=== PATIENT | female | born 1940 | race Caucasian/White ===

== ENCOUNTER 2017-03-01 10:09 | Emergency (ER) | payer MEDICARE, OTHER, SELFPAY ==
[2017-03-01 10:10] VITALS: BP 93/66; PULSE 87; PULSE 89; RESP 17; RESP 20; TEMP 36.5; O2SAT 92; O2SAT 97; BMI 18.5
[2017-03-01] MEDS: 0.9% Normal Saline 1,000 ML 1000 ML IV (10:30)
[2017-03-01 10:39] LABS: Absolute Lymphocyte Count 1.38 X10^3/ul (0.83-4.51); Absolute Neutrophil Count 13.1 X10^3/uL (2.0-7.7); Basophil# 0.02 X10^3/uL; Basophil% 0.1 % (0-1); Eosinophil# 0.07 X10^3/uL; Eosinophils% 0.4 % (0-5); Hematocrit 31.4 % (37-47); Hemoglobin 9.7 g/dl (12.0-15.0); Lymphocyte # 1.38 X10^3/ul (4.0); Lymphocyte % 8.7 % (19-41); Mean Corp Hgb Conc 30.9 g/gl (32-36); Mean Corpuscular Hgb 25.7 pg (27.0-32.0); Mean Corpuscular Volume 83.1 fL (81-99); Mean Platelet Vol. 9.3 fl (6.2-12.0); Monocyte# 1.15 X10^3/uL; Monocyte% 7.3 % (0-10); Neutrophil # 13.13 X10^3/uL (2.7-7.7); Neutrophil % 83.2 % (47-70); Platelet Count 414 K/mm3 (150-450); RBC Distribution Width CV 16.5 % (11.6-14.6); RBC Distribution Width SD 50.8 fl (35.1-43.9); Red Blood Count 3.78 M/mm3 (4.2-5.4); White Blood Count 15.8 K/mm3 (4.4-11.0)
[2017-03-01 10:44] LABS: Anion Gap 12 (5-15); BUN 15 mg/dL (7-18); BUN/Creat Ratio 8.4 RATIO (10-20); Calcium,Total 9.3 mg/dL (8.5-10.1); Chloride 104 mmol/L (98-107); Creatinine, Serum 1.78 mg/dL (0.55-1.02); EST Glomerular Filtration Rate 29 mL/min (>60); Est Glom Filt Rate - Afr Amer 36 mL/min (>60); Glucose 94 mg/dL (70-110); Potassium 3.1 mmol/L (3.5-5.1); Sodium Level 139 mmol/L (136-145)
[2017-03-01 10:55] LABS: Lactic Acid 1.6 mmol/L (0.4-2.0)
[2017-03-01 10:56] LABS: POSITIVE COUNT NO; POSITIVE DIFFERENTIAL NO; POSITIVE MORPHOLOGY NO
--- NOTE | 2017-03-01 12:07 | ED.VISSUMM ---
- ER Visit Summary Date of Service: 03/01/17 Chief Complaint: Diarrhea History of Present Illness: The patient is a [address] Hutton. She reports that she has had diarrhea off and on for months. The most recent episode began again yesterday at 2 PM. States she is going approximately once an hour. No blood in her stools or black tarry stools. She denies any abdominal pain. She reports that at times she gets nauseated when she eats. She reports that she vomited once this morning. No blood in her emesis. States this is similar to when she had C. difficile approximately 2 years ago. However, she had a negative C. difficile at [facility] earlier this month and a negative C. difficile in the office approximately 1 week ago. Patient denies sick contacts. Has not been camping out of the country. No possible bad food exposure. Does not drink well water. No recent antibiotic use. Physical Examination: Vitals: Stable. Afebrile. General: Well-nourished and well-developed. Head: Normocephalic atraumatic. Neck: Supple, no lymphadenopathy. No JVD. Nontender. Cardiovascular: Regular rate and rhythm. 2 out of 6 systolic murmur. Respiratory: No respiratory distress. Clear to auscultation bilaterally. Abdominal: Soft, nontender, minimal tenderness to palpation that is diffuse, normal bowel sounds. No guarding, rebound, or peritoneal signs. Back: Nontender. Extremities: Nontender, no edema. Skin: Normal color, no rash. Neurologic: Alert and oriented ?3. Cranial nerves II through XII are intact. Normal strength and sensation. Psych: Normal affect. Test Results: CBC is marked for a white count of 15.8, H&H of 9.7 31.4, segmented neutrophils 83, leukocytes of 9. Her white count has ranged between 14.3 and 18.2 since January 08, 2017. Chem-7 is marked potassium 3.1 creatinine 1.78. Creatinine has ranged between 1.32 and 2.53 since January of last year. Lactic acid is normal. Emergency Department Course and Treatment: Patient has been unable to give a stool sample on the emergency department. She has had no diarrhea while here. She was given a liter bolus of normal saline. Had a prolonged discussion with the patient and her family. She has never had a colonoscopy, endoscopy, or seen a miller head. Treatment Plan: Patient is asking for something for the diarrhea at home. She is given Lomotil to use sparingly. Instructed to follow-up with her primary care physician in 1-2 days if not improving. She does understand that she needs to have a positive C. difficile before treatment for this is recommended. I have also suggested that she follow-up with Dr. Goodwin, of gastroenterology, as soon as possible. Return to the emergency department for any worsening symptoms. Disposition: To home in improved and stable condition. Impression: 1. Diarrhea. 2. Leukocytosis, chronic. 3. Chronic renal insufficiency. This note was generated with [employer] dictation software. It may contain incorrect words, spelling, and punctuation that were not noted in review of the chart prior to signing ED Disposition - Plan for ED Patient: Disposition: Home or Assisted Living Chief Complaint: Diarrhea Instructions: ED Vomiting Diarrhea Nonspecific Ad Prescriptions: Diphenoxylate/Atrop [Lomotil] 1 tablet PO BID PRN PRN #6 tablet PRN Reason: Diarrhea Referrals: Sherry Hutton MD [Primary Care Provider] - 1-2 Days if not improving Asa Goodwin MD [STAFF PHYSICIAN] - As soon as possible
--- NOTE | 2017-03-01 12:10 | ED.DCSUM_ITS ---
- ER Visit Summary Date of Service: 03/01/17 Chief Complaint: Diarrhea History of Present Illness: The patient is a [address] Hutton. She reports that she has had diarrhea off and on for months. The most recent episode began again yesterday at 2 PM. States she is going approximately once an hour. No blood in her stools or black tarry stools. She denies any abdominal pain. She reports that at times she gets nauseated when she eats. She reports that she vomited once this morning. No blood in her emesis. States this is similar to when she had C. difficile approximately 2 years ago. However, she had a negative C. difficile at [facility] earlier this month and a negative C. difficile in the office approximately 1 week ago. Patient denies sick contacts. Has not been camping out of the country. No possible bad food exposure. Does not drink well water. No recent antibiotic use. Physical Examination: Vitals: Stable. Afebrile. General: Well-nourished and well-developed. Head: Normocephalic atraumatic. Neck: Supple, no lymphadenopathy. No JVD. Nontender. Cardiovascular: Regular rate and rhythm. 2 out of 6 systolic murmur. Respiratory: No respiratory distress. Clear to auscultation bilaterally. Abdominal: Soft, nontender, minimal tenderness to palpation that is diffuse, normal bowel sounds. No guarding, rebound, or peritoneal signs. Back: Nontender. Extremities: Nontender, no edema. Skin: Normal color, no rash. Neurologic: Alert and oriented ?3. Cranial nerves II through XII are intact. Normal strength and sensation. Psych: Normal affect. Test Results: CBC is marked for a white count of 15.8, H&H of 9.7 31.4, segmented neutrophils 83, leukocytes of 9. Her white count has ranged between 14.3 and 18.2 since January 08, 2017. Chem-7 is marked potassium 3.1 creatinine 1.78. Creatinine has ranged between 1.32 and 2.53 since January of last year. Lactic acid is normal. Emergency Department Course and Treatment: Patient has been unable to give a stool sample on the emergency department. She has had no diarrhea while here. She was given a liter bolus of normal saline. Had a prolonged discussion with the patient and her family. She has never had a colonoscopy, endoscopy, or seen a nutrient management specialist. Treatment Plan: Patient is asking for something for the diarrhea at home. She is given Lomotil to use sparingly. Instructed to follow-up with her primary care physician in 1-2 days if not improving. She does understand that she needs to have a positive C. difficile before treatment for this is recommended. I have also suggested that she follow-up with Dr. Goodwin, of gastroenterology , as soon as possible. Return to the emergency department for any worsening symptoms. Disposition: To home in improved and stable condition. Impression: 1. Diarrhea. 2. Leukocytosis, chronic. 3. Chronic renal insufficiency. This note was generated with [email or web address] dictation software. It may contain incorrect words, spelling, and punctuation that were not noted in review of the chart prior to signing ED Disposition - Plan for ED Patient: Disposition: Home or Assisted Living Chief Complaint: Diarrhea Instructions: ED Vomiting Diarrhea Nonspecific Ad Prescriptions: Diphenoxylate/Atrop [Lomotil] 1 tablet PO BID PRN PRN #6 tablet PRN Reason: Diarrhea Referrals: Sherry Hutton MD [Primary Care Provider] - 1-2 Days if not improving Asa Goodwin MD [STAFF PHYSICIAN] - As soon as possible
[2017-03-01 13:06] VITALS: BP 116/53; PULSE 85; RESP 20; O2SAT 97
== END 2017-03-01 14:00 | disposition home or self-care (01) ==
LOC: ED 11:16
PROVIDERS: Emergency Provider Emergency Medicine; Family Provider Internal Medicine; PCP Internal Medicine
DX: R19.7 Diarrhea, unspecified (principal); D72.829 Elevated white blood cell count, unspecified; I12.9 Hypertensive chronic kidney disease with stage 1 through stage 4 chronic kidney disease, or unspecified chronic kidney disease; N18.9 Chronic kidney disease, unspecified; E78.00 Pure hypercholesterolemia, unspecified; J44.9 Chronic obstructive pulmonary disease, unspecified; F17.210 Nicotine dependence, cigarettes, uncomplicated; R01.1 Cardiac murmur, unspecified
CPT/HCPCS: 80048; 83605; 85025; 96360; 99285; J7030; A4216

== ENCOUNTER 2017-03-13 15:54 | Inpatient (IN) | payer MEDICARE, OTHER, SELFPAY ==
[2017-03-13] VITALS (12 sets, daily range): BP systolic 109–145; BP diastolic 54–66; PULSE 107–125; RESP 16–28; TEMP 36.6–37.8; O2SAT 93–100; BMI 19.3; BMI 17.0
--- NOTE | 2017-03-13 16:28 | CT_ITS ---
STUDY: CT ABDOMEN AND PELVIS WITH CONTRAST REASON FOR EXAM: Female, 76 years old. Abdominal pain. RADIATION DOSAGE (If Supplied By Facility): CTDIvol = ( 9.75 ) mGy, DLP = ( 286.88 ) mGycm TECHNIQUE: Transaxial images were obtained from the dome of the diaphragm to the symphysis pubis without oral contrast. 100 ml of Isovue 300 contrast was administered. Sagittal and coronal images were reconstructed. Individualized dose optimization techniques were used for this CT. COMPARISON: None. FINDINGS: The visualized lung bases are unremarkable. There are peripheral calcifications and mural thrombus within the visualized ascending aorta which measures up to 3.4 cm in diameter. Within the left hepatic lobe there is a well-circumscribed 1.2 cm low-attenuation focus that likely reflects an underlying hemangioma or cyst. There is a similar appearing 7 mm focus within the dome of the liver. Normal gallbladder and extrahepatic biliary system. Normal spleen. Normal pancreas. There is a 2.3 x 2.1 x 2.2 cm slightly heterogenous left adrenal nodule. There is mild nodularity in the right adrenal gland noted as well. There are bilateral well-circumscribed low-attenuation foci arising from the kidneys most consistent with underlying cysts. There is a 1.7 x 1.9 x 1.9 cm slightly high attenuation rounded focus arising from the right kidney with a Hounsfield units of 64. There is an additional 9 mm slightly high attenuation focus arising from the right kidney with a Hounsfield units of 63. There is a minimally complex left renal cyst. Normal visualized stomach. Normal small intestine. There are diverticula scattered throughout the descending and sigmoid colon. There is circumferential wall thickening of the descending colon extending into the sigmoid descending colon junction associated with pericolonic stranding. There is mild circumferential wall thickening throughout the colon which may be partially secondary to its incomplete distended state. There is non-visualization of the appendix. There is diffuse atherosclerotic calcification of the abdominal aorta, without a demonstrated aneurysm. Normal inferior vena cava. Normal retroperitoneum. There is air within the urinary bladder associated with bladder wall thickening. There appears to be prolapse of the uterus. Normal abdominal wall. There are diffuse degenerative changes of the visualized lumbar spine. CT/Abdomen/Pelvis W IV Cont ONLY IMPRESSION: Acute diverticulitis involving the descending and sigmoid descending colonic junction. Air within the urinary bladder that may be secondary to recent instrumentation however an underlying infectious process cannot be entirely excluded. Indeterminate left adrenal and right renal cystic foci, cannot exclude underlying neoplastic processes recommend a MRI for further characterization. Possible uterine prolapse. Atherosclerosis. Mild circumferential wall thickening of the colon that may be secondary to its incompletely distended state and/or a sequela of prior colitis. Electronically Signed: Latricia Childs MD at 18:43 EST Tel , Service support ,
--- NOTE | 2017-03-13 16:28 | EKG12_ITS ---
Test Reason : Blood Pressure : / mmHG Vent. Rate : 112 BPM Atrial Rate : 112 BPM P-R Int : 124 ms QRS Dur : 066 ms QT Int : 348 ms P-R-T Axes : 067 013 064 degrees QTc Int : 475 ms Sinus tachycardia Nonspecific ST and T wave abnormality Abnormal ECG Confirmed by NAOMY TRIVEDI, KAMALJIT ([id number]), social media editor JAMIE ESTRADA ([id number]) on 03/16/2017 1:54:18 PM Referred By: KATHY Confirmed By:KAMALJIT MORALEZ MD
--- NOTE | 2017-03-13 16:30 | RAD_ITS ---
STUDY: X-RAY CHEST REASON FOR EXAM: Female, 76 years old. Tachypnea TECHNIQUE: Frontal chest COMPARISON: August 12, 2015 FINDINGS: There is elevation of the left hemidiaphragm. There are stable prominent coarse interstitial markings. There is a stable rounded radiolucency within the right upper lung which may reflect underlying bulla. Normal size heart. Normal mediastinum and dominick. Normal visualized pulmonary arteries. There is atherosclerotic calcification of the aortic arch with tortuosity. Normal visualized thoracic spine. There is a stable left posterior rib deformity suggestive of a healed fracture. There is no demonstrated abnormality of the visualized soft tissue structures of the upper abdomen. RAD/Chest 1 View (Portable) IMPRESSION: Stable examination demonstrating no acute cardiopulmonary process. Electronically Signed: Latricia Childs MD at 17:08 EST Tel , Service support ,
--- NOTE | 2017-03-13 16:32 | ED.DCSUM_ITS ---
- ER Visit Summary Date of Service: 03/13/17 Chief Complaint: Diarrhea and feeling foggy History of Present Illness: The patient is a 76 F with recent recurrent diarrhea presents for return of diarrhea today and fogginess. Family states the patient has been having some difficulty with ADLs and doing some actions that are not appropriate, such as not letting go of a door handle or letting go of her walker when appropriate and also trying to sit on the coffee table instead of in the couch. She started having watery diarrhea again today. They gave her Imodium. She vomited 30 minutes later. No fever, chest pain, acute shortness of breath but patient has chronic dyspnea secondary to smoking. No abdominal pain, no urinary symptoms. History of borderline diabetes, hypertension, COPD, history of C. difficile, recent C2 fracture and currently in a c-collar Physical Examination: Vital signs: afebrile, hemodynamically stable, no hypoxia on room air General: Frail-appearing, well developed, in no distress c-collar in place Skin: warm, dry, no rash, no pallor HEENT: normocephalic and atraumatic; PERRL, EOMI, dry mucous membranes Cardiovascular: Tachycardic rate and rhythm without murmurs, no peripheral edema , 2+ pulses all distal extremities Respiratory: No increased work of breathing, lungs are clear to auscultation bilaterally, no rales, rhonchi or wheezing Abdominal: Abdomen is soft, nontender with normoactive bowel sounds, no guarding or rebound, no masses MSK: Moves all extremities, no deformities, normal strength Neuro: Awake and alert, oriented ?4. No facial droop, sensation and motor function intact and symmetric Test Results: Abnormal Lab Results 03/13/17 03/13/17 03/13/17 16:00 16:00 16:00 WBC 20.0 H RBC 3.71 L Hgb 9.5 L Hct 31.0 L MCV 83.6 MCH 25.6 L MCHC 30.6 L RDW 17.1 H RDW Differential 50.3 H Plt Count 478 H MPV 10.6 Immature Gran % (Auto) 0.500 Neut % (Auto) 89.4 H Lymph % (Auto) 4.9 L Franklin % (Auto) 4.9 Eos % (Auto) 0.1 Baso % (Auto) 0.2 Absolute Neuts (auto) 17.9 H Absolute Lymphs (auto) 0.97 Total Counted Not Reportable PT 13.7 INR 1.1 APTT 30.9 Sodium 140 Potassium 2.9 L Chloride 105 Carbon Dioxide 23.0 Anion Gap 12 BUN 13 Creatinine 1.29 H Estim Creat Clear Calc 28.48 Est GFR (MDRD) Af Amer 52 L Est GFR (MDRD) Non-Af 43 L BUN/Creatinine Ratio 10.1 Glucose 106 Lactic Acid Calcium 8.2 L Total Bilirubin 0.40 AST 14 L ALT 12 L Alkaline Phosphatase 137 H Troponin I 0.04 Total Protein 6.3 L Albumin 2.3 L Globulin 4.0 Albumin/Globulin Ratio 0.6 L Lipase 95 Urine Color Urine Clarity Urine pH Ur Specific Alpha Urine Protein Urine Glucose (UA) Urine Ketones Urine Occult Blood Urine Nitrite Urine Bilirubin Urine Urobilinogen Ur Leukocyte Esterase Urine RBC Urine WBC Ur Squamous Epith Cells Urine Bacteria Urine Mucus POC Glucose 03/13/17 03/13/17 03/13/17 16:40 16:45 17:20 WBC RBC Hgb Hct MCV MCH MCHC RDW RDW Differential Plt Count MPV Immature Gran % (Auto) Neut % (Auto) Lymph % (Auto) Franklin % (Auto) Eos % (Auto) Baso % (Auto) Absolute Neuts (auto) Absolute Lymphs (auto) Total Counted PT INR APTT Sodium Potassium Chloride Carbon Dioxide Anion Gap BUN Creatinine Estim Creat Clear Calc Est GFR (MDRD) Af Amer Est GFR (MDRD) Non-Af BUN/Creatinine Ratio Glucose Lactic Acid 2.2 H Calcium Total Bilirubin AST ALT Alkaline Phosphatase Troponin I Total Protein Albumin Globulin Albumin/Globulin Ratio Lipase Urine Color Yellow Urine Clarity Cloudy Urine pH 6.0 Ur Specific Alpha 1.020 Urine Protein 100 H Urine Glucose (UA) Normal Urine Ketones 5 H Urine Occult Blood 25 H Urine Nitrite Negative Urine Bilirubin 1 H Urine Urobilinogen 1 H Ur Leukocyte Esterase 500 H Urine RBC 0 SEEN Urine WBC >100 SEEN Ur Squamous Epith Cells 0 SEEN Urine Bacteria 4+ Urine Mucus 0 SEEN POC Glucose 104 Emergency Department Course and Treatment: Patient's presentation is concerning for possible intra-abdominal allergy, with C. difficile high in the differential. Infectious workup was performed. Patient had leukocytosis of 20. Lactate elevated at 2.2. Because she meets sepsis criteria with concern for infectious etiology, she was started empirically on Zosyn for intra- abdominal coverage. Urine came back positive for infection. Potassium low at 2.9. Creatinine was at baseline. Troponin 0 0.04. EKG showed a sinus tachycardia without any ischemic changes. Chest x-ray showed no pneumonia. CT of the abdomen and pelvis showed diverticulitis and colitis. C. difficile is pending as patient had episode of diarrhea in the emergency department. She was given initially oral potassium but could not swallow the pills and thus it was switched to IV potassium. Received IV fluids. She was discussed with Dr. Monae admitted for further management and workup of severe sepsis. Treatment Plan: [] Disposition: Admission Impression: #1. Severe sepsis #2. UTI #3. Hypokalemia #4. Diverticulitis #5. Colitis #6. History of C. difficile This note was generated with [employer] dictation software. It may contain incorrect words, spelling, and punctuation that were not noted in review of the chart prior to signing ED Disposition - Plan for ED Patient: Disposition: Acute Care [facility] Chief Complaint: Weakness
[2017-03-13 16:46] LABS: Bedside Glucose 104 mg/dL (70-110)
[2017-03-13] MEDS: 0.9% Normal Saline 1,000 ML 1000 ML IV (16:46)
[2017-03-13 17:04] LABS: Absolute Lymphocyte Count 0.97 X10^3/ul (0.83-4.51); Absolute Neutrophil Count 17.9 X10^3/uL (2.0-7.7); Basophil# 0.03 X10^3/uL; Basophil% 0.2 % (0-1); Eosinophil# 0.01 X10^3/uL; Eosinophils% 0.1 % (0-5); Hemoglobin 9.5 g/dl (12.0-15.0); International Normalized Ratio 1.1; Lymphocyte # 0.97 X10^3/ul (4.0); Lymphocyte % 4.9 % (19-41); Mean Corp Hgb Conc 30.6 g/gl (32-36); Mean Corpuscular Hgb 25.6 pg (27.0-32.0); Mean Corpuscular Volume 83.6 fL (81-99); Mean Platelet Vol. 10.6 fl (6.2-12.0); Monocyte# 0.97 X10^3/uL; Monocyte% 4.9 % (0-10); Neutrophil % 89.4 % (47-70); Platelet Count 478 K/mm3 (150-450); Prothrombin Time (Protime)PT. 13.7 SECONDS (11.7-14.9); RBC Distribution Width CV 17.1 % (11.6-14.6); RBC Distribution Width SD 50.3 fl (35.1-43.9); Red Blood Count 3.71 M/mm3 (4.2-5.4)
[2017-03-13 17:05] LABS: Partial Thromboplast Time 30.9 Seconds (24.1-36.2)
[2017-03-13 17:10] LABS: POSITIVE COUNT NO; POSITIVE DIFFERENTIAL NO; POSITIVE MORPHOLOGY NO
[2017-03-13 17:17] LABS: ALB/GLOB Ratio 0.6 RATIO (0.9-2.4); AST(SGOT) 14 U/L (15-37); Alanine Aminotransfer ALT/SGPT 12 U/L (13-56); Albumin, Serum 2.3 g/dL (3.2-5.0); Alkaline Phosphatase 137 U/L (45-117); Anion Gap 12 (5-15); BUN 13 mg/dL (7-18); BUN/Creat Ratio 10.1 RATIO (10-20); Calcium,Total 8.2 mg/dL (8.5-10.1); Chloride 105 mmol/L (98-107); Creatinine, Serum 1.29 mg/dL (0.55-1.02); EST Glomerular Filtration Rate 43 mL/min (>60); Est Glom Filt Rate - Afr Amer 52 mL/min (>60); Estimated Creatinine Clearance 28.48 ml/min; Glucose 106 mg/dL (74-106); Lipase 95 U/L (73-393); Potassium 2.9 mmol/L (3.5-5.1); Protein, Total 6.3 g/dL (6.4-8.2); Sodium Level 140 mmol/L (136-145)
[2017-03-13 17:28] LABS: Lactic Acid 2.2 mmol/L (0.4-2.0)
--- NOTE | 2017-03-13 17:29 | ED.RN ---
LACTIC ACID 2.[address] LAB[address] DR CHAVEZ AWARE
[2017-03-13 17:33] LABS: Mucous, Urine 0 SEEN /hpf (<or=2+); Red Blood Cells-Urine 0 SEEN /hpf (0-5); Squamous Epithelial Cells - UA 0 SEEN /hpf (5-10)
[2017-03-13 17:36] LABS: Color, Urine Yellow (Yellow); Glucose, Dipstick Normal (Normal); Ketone-Dipstick 5 mg/dl (Negative); Leukocyte Esterase-Dipstick 500 /ul (Negative); Nitrite-Dipstick Negative (Negative); Occult Blood-Urine 25 /ul (Negative); Protein-Dipstick 100 mg/dl (Negative); Urine Clarity Cloudy (Clear); Urine Urobilinogen 1 mg/dl (Normal)
[2017-03-13 17:50] LABS: Urine Bilirubin Dipstick 1 mg/dL (Negative)
[2017-03-13 17:52] LABS: Bacteria 4+ /hpf (None Seen)
[2017-03-13 17:54] LABS: White Blood Cells >100 SEEN /hpf (0-5)
--- NOTE | 2017-03-13 18:33 | ED.RN ---
POC DISCUSSED WITH DR. CHAVEZ. AWARE OF MOST RECENT SET OF VITAL SIGNS. CONT TO MONITOR.
--- NOTE | 2017-03-13 19:41 | PCM.HP.STD ---
Problem List (1) Abdominal cramping Status: Acute (2) Diarrhea Status: Acute Qualifiers: Diarrhea type: presumed infectious Qualified Code(s): R19.7 - Diarrhea, unspecified History of Present Illness Date of Admission: 03/13/17 Chief Complaint: abdominal cramping, diarrhea The patient is a 76 year old F who was seen in the emergency room at [facility] with complaints of diarrhea, abdominal cramping, and lethargy which started today. patient had also been acting confused at times today. workup in the ER included labs which were remarkable for an elevated WBC of 20,000, Hb was 9.5, K was 2.9, UA showed over 100 WBC's and 4+ bacteria. Creatinine was 1.29 and Lactic acid was 2.2. CT of abdomen and pelvis was obtained which showed diverticulitis of sigmoid and descending colon and air within the bladder. On exam, patient was appropriate but lethargic, heart rate was regular and tachycardic, abdomen was soft, there was moderate abdominal tenderness to palpation over the left lower quadrant, and lungs were clear. Patient was aditted for acute severe sepsis from diverticulitis, possible C.difficle infection, acute cystitis, and hypokalemia. She will be admitted to PCU. 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 pt Chronic respiratory failure with hypoxia (Chronic) HTN (hypertension) (Chronic) Allergies No Known Allergies Allergy (Verified 03/01/17 10:10) Home Medications: Ambulatory Orders Medication Instructions Recorded Albuterol Sulfate [Proair 2 puff IH PRN PRN 04/30/15 Respiclick] Budesonide/Formoterol 160/4.5 2 puff INHALATION BID 04/30/15 [Symbicort 160/4.5 Mcg Inhaler (SP)] Cilostazol [Pletal] 100 mg PO DAILY 04/30/15 Losartan Potassium [Cozaar] 100 mg PO DAILY 04/30/15 Metoprolol Tartrate [Lopressor 50 mg PO BID 04/30/15 (beta jose)] Tiotropium [place] [Spiriva 18 MCG] 1 puff INHALATION DAILY 04/30/15 Meclizine HCl [Antivert] 12.5 mg PO TID PRN PRN 08/12/15 Saccharomyces Boulardii [Digestive 200 mg PO DAILY 08/12/15 Probiotic] Simvastatin [Zocor] 20 mg PO QHS 08/12/15 Ondansetron [Zofran Odt] 4 mg PO Q8H PRN PRN #10 tab 01/20/17 Diphenoxylate/Atrop [Lomotil] 1 tablet PO BID PRN PRN #6 tablet 03/01/17 Surgical History: - - Vascular surgery in her lower back Psychiatric History: No pertinent psych hx TRAINING PROGRAM MANAGER History: No pertinent TRAINING PROGRAM MANAGER history Lives: With Family Smoking Status: Current every day smoker Tobacco Use: Cigarettes Alcohol: None Drugs: None - *Family History Maternal History Items: No pertinent history Paternal History Items: Cancer Review of Systems Constitutional: Reports: Anorexia, Malaise, Weakness, Fatigue. Denies: Chills, Fever, Night Sweats Eyes: Denies: Blurred vision, Cataracts, Conjunctivae Inflammation, Drainage, Eyelid Inflammation, Pain HEENT: Denies: Difficulty Swallowing, Dysphasia, Ear Pain, Eye Pain, Head Aches, Hearing Changes, Nasal bleeding, Nasal Congestion, Post Nasal Drip Cardiovascular: Denies: Chest Pain, Claudication, Chest Pressure, Chest Tightness, Heaviness, Light Headedness, Orthopnea, Syncope Respiratory: Denies: Cough, Hemoptysis, Pleuritic Pain, Shortness of Breath Gastrointestinal: Reports: Abdominal Pain, Diarrhea. Denies: Constipation, Dyspepsia, Hematemesis, Hematochezia, Nausea, Melena Genitourinary: Denies: Dysuria, Frequency, Hematuria, Incontinence, Nocturia, Retention Gynecological: Denies: Breast symptoms Musculoskeletal: Denies: Back Pain, Foot Pain, Hand Pain, Joint stiffness, Joint swelling, Joint Tenderness, Leg Pain Skin: Denies: Dryness, Jaundice, Pruritis, Rash Neurological: Reports: Balance problems. Denies: Blurred vision, Double vision, Change in Speech, Slurred speech, Difficulty swallowing, Focal weakness, Headaches, Incoordination, Numbness Psychiatric: Denies: Anxiety, Homicidal Ideations Endocrine: Denies: Change in Body Habitus, Heat/ Cold Intolerance, Polyuria VTE Information - Inpt Only VTE Present on Admission: No VTE Mechan Device Prophylaxis: None VTE Pharm Prophylaxis ordered?: Yes Patient Problems: Active and Suspected Problems Abdominal cramping (Acute) Diarrhea (Acute) - Physical Exam General: Alert, Oriented x3, Cooperative, No apparent distress, Well developed, Well nourished, Lethargic HEENT: Atraumatic, PERRLA, EOMI, Normocephalic Oral: Moist Mucosa Neck: Supple, No JVD, Negative Carotid Bruits, No Nuchal Rigidity, Trachea Midline, Thyroid Normal Size and Texture Lungs: Clear to auscultation, Normal air movement, No rhonchi, No wheeze, No rales Cardiovascular: Regular Rhythm, Normal S1, Normal S2, No murmurs, No Ectopic Activity, PMI Normal, No rub noted, Tachycardic Abdomen: Bowel Sounds Present, Soft, Non Tender, Non-Distended, Tender - left lower abdominal tenderness to palpation, No hernias noted Extremities: No clubbing, No cyanosis, No edema, Capillary Refill Less than 3 Seconds Skin: No rashes, No breakdown Neurological: Cranial nerves II-XII grossly intact, Neuro grossly intact, Sensory exam intact to light touch and pain, Coordination normal Psych/Mental Status: Normal Affect, Appropriate, Alert and oriented to time, place, person, mood and affect Vital Signs Temp Pulse Resp BP Pulse Ox 100.1 F H 123 H 19 H 109/59 L 98 03/13/17 18:23 03/13/17 19:23 03/13/17 18:56 03/13/17 19:23 03/13/17 19:23 Assessment/Plan Active and Suspected Problems Abdominal cramping (Acute) Diarrhea (Acute) #1 acute severe sepsis secondary to acute diverticulitis, acute cystitis, and probable C. difficile colitis-patient will be admitted to PCU, given IV fluids, placed on oral vancomycin, placed on IV Zosyn, and labs will be monitored. Lactic acid will be rechecked #2 acute diverticulitis of descending and sigmoid colon-see above for treatment #3 acute cystitis-she will be treated with Zosyn #4 probable C. difficile colitis-stool was obtained for C. difficile toxin, patient will be placed on oral vancomycin until results are known, she will need to be in enteric isolation 5 hypokalemia-patient will be given IV potassium replacement, labs will be rechecked #6 metabolic encephalopathy-secondary to severe sepsis #7 generalized debility-patient will need to see PT and OT #8 recent C2 cervical spine fracture-patient sustained a C2 cervical spine fracture after a fall on February 13, 2017, she will need to remain in her rigid collar there is no surgical treatment for this patient was seen at [facility] for the fracture #9 COPD Code Visit Inpatient E&M: 55350 Init Hosp L3
[2017-03-13] MEDS: 0.9% Normal Saline 1,000 ML 150 ML IV (20:30)
[2017-03-13 20:53] LABS: Reflex Lactate? Y
[2017-03-13 21:47] LABS: Lactic Acid 1.3 mmol/L (0.4-2.0)
[2017-03-13] MEDS: Piperacil/Tazobactam 3.375 GM/50 ML ML IV (22:19)
[2017-03-13] MEDS: Metoprolol Tartrate 50 MG Tablet PO (22:24)
[2017-03-13] MEDS: Atorvastatin Calcium 10 MG Tablet PO (22:24)
[2017-03-14] VITALS (11 sets, daily range): BP systolic 128–145; BP diastolic 52–55; PULSE 76–103; RESP 18–22; TEMP 36.7–37.1; O2SAT 98–100
[2017-03-14] MEDS: 0.9% Normal Saline 1,000 ML 150 ML IV (02:42)
[2017-03-14] MEDS: Piperacil/Tazobactam 3.375 GM/50 ML ML IV ×3 (05:38→21:52)
[2017-03-14 06:17] LABS: Hematocrit 26.4 % (37-47); Hemoglobin 8.2 g/dl (12.0-15.0); Mean Corp Hgb Conc 31.1 g/gl (32-36); Mean Corpuscular Hgb 25.7 pg (27.0-32.0); Mean Corpuscular Volume 82.8 fL (81-99); Mean Platelet Vol. 9.3 fl (6.2-12.0); Platelet Count 375 K/mm3 (150-450); RBC Distribution Width SD 52.3 fl (35.1-43.9); Red Blood Count 3.19 M/mm3 (4.2-5.4)
[2017-03-14 06:18] LABS: Anion Gap 12 (5-15); BUN 12 mg/dL (7-18); BUN/Creat Ratio 12.1 RATIO (10-20); Calcium,Total 7.4 mg/dL (8.5-10.1); Chloride 112 mmol/L (98-107); Creatinine, Serum 0.99 mg/dL (0.55-1.02); EST Glomerular Filtration Rate 57 mL/min (>60); Est Glom Filt Rate - Afr Amer 70 mL/min (>60); Estimated Creatinine Clearance 34.93 ml/min; Glucose 92 mg/dL (74-106); Potassium 3.7 mmol/L (3.5-5.1); Sodium Level 142 mmol/L (136-145)
[2017-03-14 06:21] LABS: Scan Indicated on CBC? Y/N YES- FLAGS NOTED
[2017-03-14 06:41] LABS: Differential Comment SCANNED
--- NOTE | 2017-03-14 08:45 | MRI_ITS ---
STUDY: MRI ABDOMEN WITHOUT CONTRAST REASON FOR EXAM: Female, 76 years old. Renal mass. TECHNIQUE: Standardized fat and water weighted pulse sequences were obtained in all 3 orthogonal planes. COMPARISON: CT of the abdomen and pelvis, March 13, 2017. FINDINGS: The visualized lung bases are unremarkable. The visualized portions of the heart are within normal limits. Question cirrhotic liver. There is prominence left lateral and caudate lobes. In segment 7 of the liver there is a well-circumscribed 6 cm mass demonstrating signal intensity compatible with water. This correlates with the cyst seen in this area on CT. Similarly, there is a 1 x 0.7 cm focus in segment 3 of the liver compatible with the cyst seen on CT. No solid hepatic masses. Normal gallbladder and extrahepatic biliary system. Normal spleen. Normal pancreas. There is a 7 x 9 x 9 mm mass in the lateral a lot of the right adrenal gland. This appears similar in signal intensity to the adrenal parenchyma. There is a 1.9 x 1.9 x 2.1 cm mass in the left adrenal gland demonstrating signal in characteristics consistent with adrenal tissue. There is no evidence of decreased signal intensity on fat suppression imaging. Right kidney is of normal size and cortical thickness. There are multiple exophytic cortical cysts. There is also a exophytic 1.5 x 1.3 x 1.4 cm well-circumscribed mass off the upper pole which demonstrates signal intensity slightly higher than fluid. There is a 1.2 cm exophytic mass off the mid to lower pole which demonstrates signal intensity slightly less than the adjacent renal parenchyma. Both correlate with exophytic cysts seen on the most recent CT Mildly increased in size from the August 13, 2015 study. Both are thought to represent hemorrhagic cysts. The left kidney is of normal size and cortical thickness. There are multiple cortical cysts. Off the upper pole there is a 4 x 3.6 x 4.1 cm cyst which demonstrates signal intensities compatible with water. There is minimal calcification along the posterior wall similar to the CT findings. Other smaller simple cysts are noted. The 2 largest left renal cysts appear mildly enlarged when compared to 2016 study are otherwise unchanged. Normal visualized stomach. Normal visualized small intestine. Normal visualized colon. Normal abdominal aorta. Normal inferior vena cava. Normal retroperitoneum. Normal abdominal wall. Normal osseous structures. MRI/Abdomen without Contrast IMPRESSION: 1. Bilateral adrenal masses. Both are unchanged in size and appearance from the 2016 CT and thought to represent adenomas. 2. Bilateral renal cysts. There is a higher signal intensity cyst in the lower pole of the right kidney thought to be hemorrhagic. There is minimal rim calcification posteriorly in the largest left renal cyst. These could be further evaluated sonographically if there is concern for solid mass. 3. Hepatic cysts. Electronically Signed: Bayron Cheung DO at 14:53 EST Tel [phone], Service support ,
--- NOTE | 2017-03-14 08:47 | PCM.PROGNOTE ---
Subjective: Chief complaint: Follow-up after admission for acute diverticulitis, acute cystitis with sepsis. Patient seen and examined. No acute events overnight. She denied any significant complaints this morning. She denied abdominal pain, nausea vomiting. She denies fever chills. Denied chest pain or shortness of breath. Her main presenting complaint was incoherent and confusion according to her son. This morning, she is alert and oriented ?3. She is afebrile, blood pressure and heart rate are stable, pulse ox is 98% on 2 L. - Physical Exam General: Alert, Oriented x3, Cooperative, No apparent distress HEENT: Atraumatic, PERRLA, EOMI Oral: Moist Mucosa, No Gingival or Mucosal Lesions/ Ulcerations Neck: Supple, No JVD, Negative Carotid Bruits, Trachea Midline, Thyroid Normal Size and Texture Lungs: Clear to auscultation, No rhonchi, No wheeze, No rales, Diminished Cardiovascular: Regular rate, Regular Rhythm, Normal S1, Normal S2 Abdomen: Bowel Sounds Present, Soft, Non Tender, Non-Distended, No Hepato-splenomegaly Extremities: No clubbing, No cyanosis, No edema Skin: No rashes, No breakdown Lymphatic: No Cervical, Supraclavicular, or Inguinal Adenopathy Neurological: Cranial nerves II-XII grossly intact, Motor Exam 5/5 strength throughout Psych/Mental Status: Normal Affect, Appropriate, Alert and oriented to time, place, person, mood and affect Vital Signs Temp Pulse Resp BP Pulse Ox 98.3 F 90 18 132/53 H 98 03/14/17 08:25 03/14/17 08:25 03/14/17 08:25 03/14/17 08:25 03/14/17 08:25 Oxygen Flow Rate 2 Oxygen Delivery Method Nasal Cannula Weight: 102 lb 8.239 oz Body Mass Index (BMI) 17.0 Intake and Output for Last 24 Hours 03/12/17 03/13/17 03/14/17 23:59 23:59 23:59 Intake Total 2073.9 / 2073.9 Output Total 350 / 350 Balance 1723.9 / 1723.9 Laboratory Tests Past 24 Hrs 03/13/17 03/14/17 03/14/17 21:10 05:46 05:46 WBC 48.2 H* RBC 3.19 L Hgb 8.2 L Hct 26.4 L MCV 82.8 MCH 25.7 L MCHC 31.1 L RDW 17.0 H RDW Differential 52.3 H Plt Count 375 MPV 9.3 Differential Comment SCANNED Diff Path Review May foll Sodium 142 Potassium 3.7 Chloride 112 H Carbon Dioxide 18.0 L Anion Gap 12 BUN 12 Creatinine 0.99 Estim Creat Clear Calc 34.93 Est GFR (MDRD) Af Amer 70 Est GFR (MDRD) Non-Af 57 L BUN/Creatinine Ratio 12.1 Glucose 92 Lactic Acid 1.3 Calcium 7.4 L Clinical Impression(s) from Imaging Studies Abdomen/Pelvis CT 03/13/17 16:28 IMPRESSION: Acute diverticulitis involving the descending and sigmoid descending colonic junction. Air within the urinary bladder that may be secondary to recent instrumentation however an underlying infectious process cannot be entirely excluded. Indeterminate left adrenal and right renal cystic foci, cannot exclude underlying neoplastic processes recommend a MRI for further characterization. Possible uterine prolapse. Atherosclerosis. Mild circumferential wall thickening of the colon that may be secondary to its incompletely distended state and/or a sequela of prior colitis. Electronically Signed: Latricia Childs MD at 18:43 EST Tel , Service support , Chest X-Ray 03/13/17 16:30 IMPRESSION: Stable examination demonstrating no acute cardiopulmonary process. Electronically Signed: Latricia Childs MD at 17:08 EST Tel , Service support , Assessment/Plan This is a 76 years old female patient with a because of lethargy, abdominal cramps and diarrhea and she was found to have acute diverticulitis, acute cystitis and sepsis as well as left adrenal nodule/right renal cystic foci. #1 acute descending and sigmoid diverticulitis/sepsis: She is on IV Zosyn. Vital signs are stable, afebrile. Stool for C. difficile was negative. Her white blood count is highly elevated which is chronic. She is on clear liquids, IV fluids as well. Lactic acid is back to normal. Blood and urine cultures are pending. Plan: Continue same treatment. #2 acute cystitis: She is on IV Zosyn as above. And blood cultures are pending. She remained afebrile, other vital signs are stable. #3 left adrenal nodule/right renal cystic foci: This is an incidental finding on CT scan abdomen. Plan: MRI abdomen. #4 hypokalemia: Secondary to diarrhea, potassium replaced and corrected. Plan to check serum magnesium. #5 recent history of C2 cervical spine fracture: Due to mechanical fall. Continue neck collar, she was seen at [facility] for this fracture, no surgical treatment. #6 metabolic encephalopathy: Secondary to sepsis and infection. Today, she is alert and oriented ?3. #7 hypertension: Blood pressure stable, continue metoprolol and losartan. #8 COPD/chronic respiratory failure: Continue albuterol, DuoNeb and oxygen. Chest x-ray reviewed, no acute findings. #9 DVT prophylaxis: Subcu heparin. This note was generated with [employer] dictation software. It may contain incorrect words, spelling, and punctuation that were not noted in checking the note before signing. Code Visit Inpatient E&M: 63482 Subs Hosp L2
[2017-03-14 08:54] LABS: White Blood Count 48.2 K/mm3 (4.4-11.0)
[2017-03-14 09:27] LABS: Magnesium 1.1 mg/dL (1.6-2.6)
[2017-03-14] MEDS: Losartan Potassium 100 MG Tablet PO (10:59)
[2017-03-14] MEDS: Metoprolol Tartrate 50 MG Tablet PO ×2 (10:59→21:52)
[2017-03-14] MEDS: LORazepam 2 MG/ML Syringe 1 MG IV (11:37)
[2017-03-14] MEDS: 0.9% NaCl Peripheral Flush Adult/Peds IV (11:37)
[2017-03-14 12:05] LABS: Pathologist Review Reviewed
--- NOTE | 2017-03-14 14:14 | CHAPLAIN ---
daughter was in hallway and pt was being attended; daughter suggests a return for visit tomorrow as pt had a difficult time in sleeping last evening and would be better served when more alert; offer of support to daughter; no concerns for daughter at this time
--- NOTE | 2017-03-14 14:29 | CASEMGMT ---
real to Face with patient for initial transition planning/care coordination assessment. RN KIMBERLYN introduced self and role at [facility], pt/daughter voice understanding and consent to assessment at this time. Pt sitting up in chair in no distress at this time. Pt A/O x4 at this time and answers all questions appropriately at this time. Care providers, pharmacy, and demographics verified. See attached link. Pt voices no further concerns/needs at this time. Advised pt to ask for CM if any further questions/concerns/needs arise, voices understanding. CM to follow for any further discharge planning/needs. PLAN: [place] [facility]
[2017-03-14] MEDS: 0.9% Normal Saline 1,000 ML 100 ML IV (21:53)
[2017-03-14] MEDS: Atorvastatin Calcium 10 MG Tablet PO (21:53)
[2017-03-15] VITALS (12 sets, daily range): BP systolic 112–150; BP diastolic 36–57; PULSE 71–86; RESP 12–22; TEMP 36.6–37.1; O2SAT 96–98
[2017-03-15] MEDS: 0.9% Normal Saline 1,000 ML 100 ML IV (04:42)
[2017-03-15] MEDS: Piperacil/Tazobactam 3.375 GM/50 ML ML IV ×3 (05:59→21:13)
[2017-03-15 06:24] LABS: Absolute Lymphocyte Count 1.25 X10^3/ul (0.83-4.51); Absolute Neutrophil Count 34.6 X10^3/uL (2.0-7.7); Basophil# 0.01 X10^3/uL; Eosinophil# 0.01 X10^3/uL; Hematocrit 26.2 % (37-47); Hemoglobin 8.1 g/dl (12.0-15.0); Lymphocyte # 1.25 X10^3/ul (4.0); Lymphocyte % 3.4 % (19-41); Mean Corp Hgb Conc 30.9 g/gl (32-36); Mean Corpuscular Hgb 25.6 pg (27.0-32.0); Mean Corpuscular Volume 82.9 fL (81-99); Mean Platelet Vol. 9.2 fl (6.2-12.0); Monocyte# 1.18 X10^3/uL; Monocyte% 3.2 % (0-10); Neutrophil # 34.63 X10^3/uL (2.7-7.7); Neutrophil % 93.1 % (47-70); Platelet Count 353 K/mm3 (150-450); RBC Distribution Width CV 17.4 % (11.6-14.6); RBC Distribution Width SD 52.7 fl (35.1-43.9); Red Blood Count 3.16 M/mm3 (4.2-5.4)
[2017-03-15 06:43] LABS: White Blood Count 37.2 K/mm3 (4.4-11.0)
[2017-03-15 06:44] LABS: Crenated RBC 2+; Differential Comment SCANNED; Differential Indicated SCAN CRITERIA MET; Ovalocyte 1+; POSITIVE COUNT YES; POSITIVE DIFFERENTIAL YES; POSITIVE MORPHOLOGY NO
[2017-03-15 06:45] LABS: Schistocytes 1+
[2017-03-15 06:54] LABS: Anion Gap 13 (5-15); BUN 11 mg/dL (7-18); BUN/Creat Ratio 12.8 RATIO (10-20); Calcium,Total 7.6 mg/dL (8.5-10.1); Chloride 115 mmol/L (98-107); Creatinine, Serum 0.86 mg/dL (0.55-1.02); EST Glomerular Filtration Rate 68 mL/min (>60); Est Glom Filt Rate - Afr Amer 83 mL/min (>60); Estimated Creatinine Clearance 40.21 ml/min; Glucose 70 mg/dL (74-106); Magnesium 2.8 mg/dL (1.6-2.6); Potassium 3.2 mmol/L (3.5-5.1); Sodium Level 146 mmol/L (136-145)
--- NOTE | 2017-03-15 07:47 | PCM.PROGNOTE ---
Subjective: Chief complaint: Follow-up after admission for acute diverticulitis, acute cystitis with sepsis. Patient seen and examined. No acute events overnight. She denies any complaints. She is feeling good. Vital signs are stable. - Physical Exam General: Alert, Oriented x3, Cooperative, No apparent distress HEENT: Atraumatic, PERRLA, EOMI Oral: Moist Mucosa, No Gingival or Mucosal Lesions/ Ulcerations Neck: Supple, No JVD, Negative Carotid Bruits, Trachea Midline, Thyroid Normal Size and Texture Lungs: Clear to auscultation, No wheeze, No rales, Diminished, Rhonchi Cardiovascular: Regular rate, Regular Rhythm, Normal S1, Normal S2, PMI Normal Abdomen: Bowel Sounds Present, Soft, Non Tender, Non-Distended, No Hepato-splenomegaly Extremities: No clubbing, No cyanosis, No edema Skin: No rashes, No breakdown Lymphatic: No Cervical, Supraclavicular, or Inguinal Adenopathy Neurological: Cranial nerves II-XII grossly intact, Motor Exam 5/5 strength throughout Psych/Mental Status: Normal Affect, Appropriate Vital Signs Temp Pulse Resp BP Pulse Ox 97.9 F 76 18 132/47 H 97 03/15/17 06:00 03/15/17 07:00 03/15/17 06:00 03/15/17 06:00 03/15/17 06:00 Oxygen Flow Rate 2 Oxygen Delivery Method Nasal Cannula Weight: 102 lb 8.239 oz Body Mass Index (BMI) 17.0 Intake and Output for Last 24 Hours 03/13/17 03/14/17 03/15/17 23:59 23:59 23:59 Intake Total 3297.9 / 3297.9 1796 / 1796 Output Total 550 / 550 400 / 400 Balance 2747.9 / 2747.9 1396 / 1396 Laboratory Tests Past 24 Hrs 03/14/17 03/14/17 03/15/17 05:46 05:46 06:10 WBC 48.2 H* 37.2 H* RBC 3.16 L Hgb 8.1 L Hct 26.2 L MCV 82.9 MCH 25.6 L MCHC 30.9 L RDW 17.4 H RDW Differential 52.7 H Plt Count 353 MPV 9.2 Immature Gran % (Auto) 0.300 Neut % (Auto) 93.1 H Lymph % (Auto) 3.4 L [place] % (Auto) 3.2 Eos % (Auto) 0.0 Baso % (Auto) 0.0 Absolute Neuts (auto) 34.6 H Absolute Lymphs (auto) 1.25 Total Counted Not Reportable Differential Comment SCANNED Diff Path Review Reviewed June RBC Morphology 2+ Ovalocytes 1+ Schistocytes 1+ Sodium Potassium Chloride Carbon Dioxide Anion Gap BUN Creatinine Estim Creat Clear Calc Est GFR (MDRD) Af Amer Est GFR (MDRD) Non-Af BUN/Creatinine Ratio Glucose Calcium Magnesium 1.1 L 03/15/17 06:10 WBC RBC Hgb Hct MCV MCH MCHC RDW RDW Differential Plt Count MPV Immature Gran % (Auto) Neut % (Auto) Lymph % (Auto) [place] % (Auto) Eos % (Auto) Baso % (Auto) Absolute Neuts (auto) Absolute Lymphs (auto) Total Counted Differential Comment Diff Path Review RBC Morphology Ovalocytes Schistocytes Sodium 146 H Potassium 3.2 L Chloride 115 H Carbon Dioxide 18.0 L Anion Gap 13 BUN 11 Creatinine 0.86 Estim Creat Clear Calc 40.21 Est GFR (MDRD) Af Amer 83 Est GFR (MDRD) Non-Af 68 BUN/Creatinine Ratio 12.8 Glucose 70 L Calcium 7.6 L Magnesium 2.8 H Assessment/Plan This is a 76 years old female patient with a because of lethargy, abdominal cramps and diarrhea and she was found to have acute diverticulitis, acute cystitis and sepsis as well as left adrenal nodule/right renal cystic foci. #1 acute descending and sigmoid diverticulitis/sepsis: Remained on IV Zosyn. Vital signs are stable, afebrile. Stool for C. difficile was negative. Her white blood count is highly elevated which is chronic. She is on clear liquids, IV fluids as well. Lactic acid is back to normal. Blood cultures pending. urine cultures revealed gram-negative rods. Plan: Diet to full liquid diet, change IV fluids to half-normal saline with potassium supplement, repeat CBC and BMP tomorrow morning. #2 acute cystitis: She is on IV Zosyn as above. Urine culture revealed gram-negative rods, final is pending. She remained afebrile, other vital signs are stable. #3 left adrenal nodule/right renal cystic foci: This is an incidental finding on CT scan abdomen. MRI abdomen done and revealed bilateral adrenal masses, likely adenomas and are unchanged in size and appearance from 2016 CT scan. Recommend follow-up with PCP as outpatient. #4 hypokalemia: Secondary to diarrhea, potassium still low at 3.2 today. Plan to replace potassium with IV fluids, repeat BMP tomorrow morning. #5 recent history of C2 cervical spine fracture: Due to mechanical fall. Continue neck collar, she was seen at [facility] for this fracture, no surgical treatment. #6 metabolic encephalopathy: Secondary to sepsis and infection. Today, she is alert and oriented ?3. #7 hypertension: Blood pressure stable, continue metoprolol and losartan. #8 COPD/chronic respiratory failure: Continue albuterol, DuoNeb and oxygen. Chest x-ray reviewed, no acute findings. She is on oxygen at home at 2 L and at this time, she is on 2 L and stable. #9 DVT prophylaxis: Subcu heparin. This note was generated with [employer] dictation software. It may contain incorrect words, spelling, and punctuation that were not noted in checking the note before signing. Code Visit Inpatient E&M: 01151 Subs Hosp L2
--- NOTE | 2017-03-15 07:51 | PN_ITS ---
Subjective: Chief complaint: Follow-up after admission for acute diverticulitis, acute cystitis with sepsis. Patient seen and examined. No acute events overnight. She denies any complaints. She is feeling good. Vital signs are stable. - Physical Exam General: Alert, Oriented x3, Cooperative, No apparent distress HEENT: Atraumatic, PERRLA, EOMI Oral: Moist Mucosa, No Gingival or Mucosal Lesions/ Ulcerations Neck: Supple, No JVD, Negative Carotid Bruits, Trachea Midline, Thyroid Normal Size and Texture Lungs: Clear to auscultation, No wheeze, No rales, Diminished, Rhonchi Cardiovascular: Regular rate, Regular Rhythm, Normal S1, Normal S2, PMI Normal Abdomen: Bowel Sounds Present, Soft, Non Tender, Non-Distended, No Hepato- splenomegaly Extremities: No clubbing, No cyanosis, No edema Skin: No rashes, No breakdown Lymphatic: No Cervical, Supraclavicular, or Inguinal Adenopathy Neurological: Cranial nerves II-XII grossly intact, Motor Exam 5/5 strength throughout Psych/Mental Status: Normal Affect, Appropriate Vital Signs Temp Pulse Resp BP Pulse Ox 97.9 F 76 18 132/47 H 97 03/15/17 06:00 03/15/17 07:00 03/15/17 06:00 03/15/17 06:00 03/15/17 06:00 Oxygen Flow Rate 2 Oxygen Delivery Method Nasal Cannula Weight: 102 lb 8.239 oz Body Mass Index (BMI) 17.0 Intake and Output for Last 24 Hours 03/13/17 03/14/17 03/15/17 23:59 23:59 23:59 Intake Total 3297.9 / 3297.9 1796 / 1796 Output Total 550 / 550 400 / 400 Balance 2747.9 / 2747.9 1396 / 1396 Laboratory Tests Past 24 Hrs 03/14/17 03/14/17 03/15/17 05:46 05:46 06:10 WBC 48.2 H* 37.2 H* RBC 3.16 L Hgb 8.1 L Hct 26.2 L MCV 82.9 MCH 25.6 L MCHC 30.9 L RDW 17.4 H RDW Differential 52.7 H Plt Count 353 MPV 9.2 Immature Gran % (Auto) 0.300 Neut % (Auto) 93.1 H Lymph % (Auto) 3.4 L [place] % (Auto) 3.2 Eos % (Auto) 0.0 Baso % (Auto) 0.0 Absolute Neuts (auto) 34.6 H Absolute Lymphs (auto) 1.25 Total Counted Not Reportable Differential Comment SCANNED Diff Path Review Reviewed June RBC Morphology 2+ Ovalocytes 1+ Schistocytes 1+ Sodium Potassium Chloride Carbon Dioxide Anion Gap BUN Creatinine Estim Creat Clear Calc Est GFR (MDRD) Af Amer Est GFR (MDRD) Non-Af BUN/Creatinine Ratio Glucose Calcium Magnesium 1.1 L 03/15/17 06:10 WBC RBC Hgb Hct MCV MCH MCHC RDW RDW Differential Plt Count MPV Immature Gran % (Auto) Neut % (Auto) Lymph % (Auto) [place] % (Auto) Eos % (Auto) Baso % (Auto) Absolute Neuts (auto) Absolute Lymphs (auto) Total Counted Differential Comment Diff Path Review RBC Morphology Ovalocytes Schistocytes Sodium 146 H Potassium 3.2 L Chloride 115 H Carbon Dioxide 18.0 L Anion Gap 13 BUN 11 Creatinine 0.86 Estim Creat Clear Calc 40.21 Est GFR (MDRD) Af Amer 83 Est GFR (MDRD) Non-Af 68 BUN/Creatinine Ratio 12.8 Glucose 70 L Calcium 7.6 L Magnesium 2.8 H Assessment/Plan This is a 76 years old female patient with a because of lethargy, abdominal cramps and diarrhea and she was found to have acute diverticulitis, acute cystitis and sepsis as well as left adrenal nodule/right renal cystic foci. #1 acute descending and sigmoid diverticulitis/sepsis: Remained on IV Zosyn. Vital signs are stable, afebrile. Stool for C. difficile was negative. Her white blood count is highly elevated which is chronic. She is on clear liquids , IV fluids as well. Lactic acid is back to normal. Blood cultures pending. urine cultures revealed gram-negative rods. Plan: Diet to full liquid diet, change IV fluids to half-normal saline with potassium supplement, repeat CBC and BMP tomorrow morning. #2 acute cystitis: She is on IV Zosyn as above. Urine culture revealed gram- negative rods, final is pending. She remained afebrile, other vital signs are stable. #3 left adrenal nodule/right renal cystic foci: This is an incidental finding on CT scan abdomen. MRI abdomen done and revealed bilateral adrenal masses, likely adenomas and are unchanged in size and appearance from 2016 CT scan. Recommend follow-up with PCP as outpatient. #4 hypokalemia: Secondary to diarrhea, potassium still low at 3.2 today. Plan to replace potassium with IV fluids, repeat BMP tomorrow morning. #5 recent history of C2 cervical spine fracture: Due to mechanical fall. Continue neck collar, she was seen at [facility] for this fracture, no surgical treatment. #6 metabolic encephalopathy: Secondary to sepsis and infection. Today, she is alert and oriented ?3. #7 hypertension: Blood pressure stable, continue metoprolol and losartan. #8 COPD/chronic respiratory failure: Continue albuterol, DuoNeb and oxygen. Chest x-ray reviewed, no acute findings. She is on oxygen at home at 2 L and at this time, she is on 2 L and stable. #9 DVT prophylaxis: Subcu heparin. This note was generated with [employer] dictation software. It may contain incorrect words, spelling, and punctuation that were not noted in checking the note before signing. Code Visit Inpatient E&M: 45998 Subs Hosp L2
[2017-03-15] MEDS: Metoprolol Tartrate 50 MG Tablet PO ×2 (09:16→21:14)
[2017-03-15] MEDS: Losartan Potassium 100 MG Tablet PO (09:16)
[2017-03-15 09:47] LABS: Pathologist Review Reviewed
--- NOTE | 2017-03-15 15:14 | CHAPLAIN ---
Type of Pastoral Visit _x__ Initial Visit ___ Follow-up Visit ___ On-call Visit ___ General Patient Visit ___ Spiritual Assessment ___ Family Conference ___ Bereavement ___ Rapid Response ___ Code Blue ___ Other (describe below) Pastoral Care Referral From _x__ Patient ___ Family ___ Nurse ___ Physician ___ Employee Development Specialist ___ In Shop Service Technician ___ Other (describe below) Sacrament/Intervention _x__ Active listening ___ Anointing ___ Advent ___ Bereavement ___ Communion ___ Doris exploration ___ ___ Life review _x__ Prayer ___ Reconciliation ___ Sacrament of Sick ___ Supportive presence ___ Wedding ___ Other (describe below) Pastoral Comments
[2017-03-15] MEDS: Atorvastatin Calcium 10 MG Tablet PO (21:14)
[2017-03-16] VITALS (7 sets, daily range): BP systolic 145–155; BP diastolic 62–98; PULSE 77–90; RESP 12–18; TEMP 36.2–36.6; O2SAT 94–96
[2017-03-16 06:08] LABS: Basophil# 0.02 X10^3/uL; Basophil% 0.1 % (0-1); Eosinophil# 0.05 X10^3/uL; Eosinophils% 0.2 % (0-5); Hematocrit 25.6 % (37-47); Mean Corp Hgb Conc 31.3 g/gl (32-36); Mean Corpuscular Hgb 25.6 pg (27.0-32.0); Mean Corpuscular Volume 81.8 fL (81-99); Mean Platelet Vol. 9.3 fl (6.2-12.0); Monocyte# 1.16 X10^3/uL; Monocyte% 3.9 % (0-10); Neutrophil # 26.96 X10^3/uL (2.7-7.7); Neutrophil % 89.5 % (47-70); Platelet Count 394 K/mm3 (150-450); RBC Distribution Width CV 17.3 % (11.6-14.6); RBC Distribution Width SD 52.6 fl (35.1-43.9); Red Blood Count 3.13 M/mm3 (4.2-5.4)
[2017-03-16] MEDS: Piperacil/Tazobactam 3.375 GM/50 ML ML IV (06:11)
[2017-03-16 06:12] LABS: Anion Gap 12 (5-15); BUN 6 mg/dL (7-18); BUN/Creat Ratio 8.7 RATIO (10-20); Calcium,Total 7.6 mg/dL (8.5-10.1); Chloride 110 mmol/L (98-107); Creatinine, Serum 0.69 mg/dL (0.55-1.02); EST Glomerular Filtration Rate 88 mL/min (>60); Est Glom Filt Rate - Afr Amer 106 mL/min (>60); Estimated Creatinine Clearance 34.58 ml/min; Glucose 83 mg/dL (74-106); Potassium 2.9 mmol/L (3.5-5.1); Sodium Level 143 mmol/L (136-145)
[2017-03-16 06:14] LABS: Differential Indicated SCAN CRITERIA MET; POSITIVE COUNT YES; POSITIVE DIFFERENTIAL YES; POSITIVE MORPHOLOGY NO; White Blood Count 30.1 K/mm3 (4.4-11.0)
[2017-03-16 06:40] LABS: Acanthocytes RARE; Anisocytosis 2+; Differential Comment SCANNED; Hypochromasia 2+; Microcytosis 1+; Ovalocyte 1+
--- NOTE | 2017-03-16 08:34 | PCM.DC ---
You will use the following diet at home:: Cardiac, Other - Light diet, advance as tolerated. Your food should be the consistency of: Regular Discharge Activity: Return to Normal Activity Weight Bearing Status: Weight bearing as tolerated Call your doctor if you observe: Fever of 101 or Higher, Shortness of breath, Dizziness, Fainting spells, Chest pain, Increased palpitations (irregular heartbeat), Uncontrolled pain Instructions: Discharge Instructions for Diverticulitis, Discharge Instructions for Hypokalemia Allergies/Adverse Reactions: Allergies No Known Allergies Allergy (Verified 03/01/17 10:10) Medications to take at Discharge Albuterol Sulfate [Proair Respiclick] 2 puff IH PRN PRN 04/30/15 Budesonide/Formoterol 160/4.5 [Symbicort 160/4.5 Mcg Inhaler (SP)] 2 puff INHALATION BID 04/30/15 Cilostazol [Pletal] 100 mg PO DAILY 04/30/15 Losartan Potassium [Cozaar] 50 mg PO DAILY 04/30/15 Metoprolol Tartrate [Lopressor (beta jose)] 50 mg PO BID 04/30/15 Tiotropium [place] [Spiriva 18 MCG] 1 puff INHALATION DAILY 04/30/15 Meclizine HCl [Antivert] 12.5 mg PO TID PRN PRN 08/12/15 Saccharomyces Boulardii [Digestive Probiotic] 200 mg PO DAILY 08/12/15 Simvastatin [Zocor] 20 mg PO QHS 08/12/15 Ondansetron [Zofran Odt] 4 mg PO Q8H PRN PRN #10 tab 01/20/17 Diphenoxylate/Atrop [Lomotil] 1 tablet PO BID PRN PRN #6 tablet 03/01/17 Levofloxacin [Levaquin] 750 mg PO DAILY #7 tab 03/16/17 Potassium Chloride [K-Dur] 20 meq PO BID #14 tab 03/16/17 The following prescriptions were given: Levofloxacin [Levaquin] 750 mg PO DAILY #7 tab Potassium Chloride [K-Dur] 20 meq PO BID #14 tab Primary Care Physician: Sherry Hutton MD [Primary Care Provider] - Please follow up with your Primary Care Physician in: 1 week.
[2017-03-16] MEDS: Metoprolol Tartrate 50 MG Tablet PO (08:55)
[2017-03-16] MEDS: Losartan Potassium 50 MG Tablet PO (08:55)
--- NOTE | 2017-03-16 09:12 | CASEMGMT ---
Resumption of care order, H&P, D/C instructions and facesheet faxed to [facility] at this time. Call placed to [facility] intake and Emeterio, intake nurse, is aware of fax and pt discharge, voices understanding. Lindsey BRICE CM
--- NOTE | 2017-03-16 14:45 | PCM.DC.SUM ---
Discharge Date and Diagnosis Date of Admission: 03/13/17 Date of Discharge: 03/16/17 - Primary Discharge Diagnosis #1 acute descending and sigmoid diverticulitis/sepsis. #2 Klebsiella pneumonia acute cystitis. #3 left adrenal nodule/right renal cystic foci. #4 hypokalemia. #5 metabolic encephalopathy. #6 recent history of C2 cervical spine fracture. - Secondary Discharge Diagnosis Chronic Problems PVD (peripheral vascular disease) (Chronic) Tobacco abuse (Chronic) COPD (chronic obstructive pulmonary disease) (Chronic) Leucocytosis (Chronic) Anomaly, leukocytes, genetic (Chronic) Weight loss (Chronic) 17 lbs since Jan 2015 History of Clostridium difficile (Chronic) has had this 3 times per the pt Chronic respiratory failure with hypoxia (Chronic) HTN (hypertension) (Chronic) Hospital Course and Treatment Imaging Results: Clinical Impression(s) from Imaging Studies Abdomen/Pelvis CT 03/13/17 16:28 IMPRESSION: Acute diverticulitis involving the descending and sigmoid descending colonic junction. Air within the urinary bladder that may be secondary to recent instrumentation however an underlying infectious process cannot be entirely excluded. Indeterminate left adrenal and right renal cystic foci, cannot exclude underlying neoplastic processes recommend a MRI for further characterization. Possible uterine prolapse. Atherosclerosis. Mild circumferential wall thickening of the colon that may be secondary to its incompletely distended state and/or a sequela of prior colitis. Electronically Signed: Latricia Childs MD at 18:43 EST Tel , Service support , Chest X-Ray 03/13/17 16:30 IMPRESSION: Stable examination demonstrating no acute cardiopulmonary process. Electronically Signed: Latricia Childs MD at 17:08 EST Tel , Service support , Abdomen MRI 03/14/17 08:45 IMPRESSION: 1. Bilateral adrenal masses. Both are unchanged in size and appearance from the 2016 CT and thought to represent adenomas. 2. Bilateral renal cysts. There is a higher signal intensity cyst in the lower pole of the right kidney thought to be hemorrhagic. There is minimal rim calcification posteriorly in the largest left renal cyst. These could be further evaluated sonographically if there is concern for solid mass. 3. Hepatic cysts. Electronically Signed: Bayron Cheung DO at 14:53 EST Tel [phone], Service support , Operations: None Procedures: None Summary of Care Provided: Patient seen and examined on the day of discharge and appears to be stable to be discharged home. She denies any complaints today. Denied abdominal pain, nausea, vomiting, constipation or diarrhea. Her pain is well controlled. Her breathing is stable at her baseline and she has been on 2 L. Vital signs are stable. - Physical Exam General: Alert, Oriented x3, Cooperative, No apparent distress. HEENT: Atraumatic, PERRLA, EOMI. Neck: Supple, No JVD, Negative Carotid Bruits, Trachea Midline, Thyroid Normal. Lungs: Diminished breath sounds bilateral, otherwise clear, No rhonchi, No wheeze, No rales. Cardiovascular: Regular rate, Regular Rhythm, Normal S1, Normal S2, PMI Normal. Abdomen: Bowel Sounds Present, Soft, Non Tender, Non-Distended, No Hepato-splenomegaly. Extremities: No clubbing, No cyanosis, No edema Skin: No rashes, No breakdown Neurological: Neuro grossly intact Vital Signs are stable. Hospital course: This is a 76 years old female patient with a because of lethargy, abdominal cramps and diarrhea and she was found to have acute diverticulitis, acute cystitis and sepsis as well as left adrenal nodule/right renal cystic foci. #1 acute descending and sigmoid diverticulitis/sepsis: Treated with IV Zosyn IV fluids, IV pain medications and IV antiemetics. She did have a significant leukocytosis she did have significant leukocytosis but that was chronic and her white blood cell count did drop with IV antibiotic therapy. Stool for C. difficile was negative. Blood culture showed no growth in 48 hours. Patient discharged home in a stable medical condition, discharged on Levaquin to complete 10 days of treatment. #2 Klebsiella pneumoniae acute cystitis: Treated with IV Zosyn as above. Urine culture revealed Klebsiella pneumoniae that was sensitive to Levaquin. Patient discharged home in a stable medical condition, discharged on Levaquin as above. #3 left adrenal nodule/right renal cystic foci: This is an incidental finding on CT scan abdomen. MRI abdomen done and revealed bilateral adrenal masses, likely adenomas and are unchanged in size and appearance from 2016 CT scan. Recommend follow-up with PCP as outpatient. #4 hypokalemia: Replaced and corrected per protocol, discharged on potassium supplement, order given to repeat BMP in 1 week.. #5 recent history of C2 cervical spine fracture: Due to mechanical fall. Continue neck collar, she was seen at [facility] for this fracture, no surgical treatment. #6 metabolic encephalopathy: Secondary to sepsis and infection. Resolved. Patient discharged home in stable medical condition, discharged on Levaquin for 7 days more to complete total of 10 days for acute diverticulitis with acute cystitis, discharged on potassium supplement, order given to repeat BMP in 1 week, recommended follow-up with PCP in 1 week. This note was generated with [employer] dictation software. It may contain incorrect words, spelling, and punctuation that were not noted in checking the note before signing. Discharge Activity: Return to Normal Activity Weight Bearing Status: Weight bearing as tolerated Call your doctor if you observe: Fever of 101 or Higher, Shortness of breath, Dizziness, Fainting spells, Chest pain, Increased palpitations (irregular heartbeat), Uncontrolled pain Home Medications: Medications to take at Discharge Albuterol Sulfate [Proair Respiclick] 2 puff IH PRN PRN 04/30/15 Budesonide/Formoterol 160/4.5 [Symbicort 160/4.5 Mcg Inhaler (SP)] 2 puff INHALATION BID 04/30/15 Cilostazol [Pletal] 100 mg PO DAILY 04/30/15 Losartan Potassium [Cozaar] 50 mg PO DAILY 04/30/15 Metoprolol Tartrate [Lopressor (beta jose)] 50 mg PO BID 04/30/15 Tiotropium Hewitt [Spiriva 18 MCG] 1 puff INHALATION DAILY 04/30/15 Meclizine HCl [Antivert] 12.5 mg PO TID PRN PRN 08/12/15 Saccharomyces Boulardii [Digestive Probiotic] 200 mg PO DAILY 08/12/15 Simvastatin [Zocor] 20 mg PO QHS 08/12/15 Ondansetron [Zofran Odt] 4 mg PO Q8H PRN PRN #10 tab 01/20/17 Diphenoxylate/Atrop [Lomotil] 1 tablet PO BID PRN PRN #6 tablet 03/01/17 Levofloxacin [Levaquin] 750 mg PO DAILY #7 tab 03/16/17 Potassium Chloride [K-Dur] 20 meq PO BID #14 tab 03/16/17 Following Prescrptions Were Given to Patient: Levofloxacin [Levaquin] 750 mg PO DAILY #7 tab Potassium Chloride [K-Dur] 20 meq PO BID #14 tab Primary Care Physician: Sherry Hutton MD [Primary Care Provider] - Please follow up with your Primary Care Physician in: 1 week. Please Follow Up With: Chica Vences, [employer] Patient Instructions: Discharge Instructions for Diverticulitis, Discharge Instructions for Hypokalemia Disposition: Home Minutes spent on discharge:: 32 Meaningful Use Info Meaningful Use Diagnoses (Choose all that apply): None applicable Code Visit Inpatient E&M: 03803 Disch Hosp
--- NOTE | 2017-03-16 14:52 | DS.PCM_ITS ---
Discharge Date and Diagnosis Date of Admission: 03/13/17 Date of Discharge: 03/16/17 - Primary Discharge Diagnosis #1 acute descending and sigmoid diverticulitis/sepsis. #2 Klebsiella pneumonia acute cystitis. #3 left adrenal nodule/right renal cystic foci. #4 hypokalemia. #5 metabolic encephalopathy. #6 recent history of C2 cervical spine fracture. - Secondary Discharge Diagnosis Chronic Problems PVD (peripheral vascular disease) (Chronic) Tobacco abuse (Chronic) COPD (chronic obstructive pulmonary disease) (Chronic) Leucocytosis (Chronic) Anomaly, leukocytes, genetic (Chronic) Weight loss (Chronic) 17 lbs since Jan 2015 History of Clostridium difficile (Chronic) has had this 3 times per the pt Chronic respiratory failure with hypoxia (Chronic) HTN (hypertension) (Chronic) Hospital Course and Treatment Imaging Results: Clinical Impression(s) from Imaging Studies Abdomen/Pelvis CT 03/13/17 16:28 IMPRESSION: Acute diverticulitis involving the descending and sigmoid descending colonic junction. Air within the urinary bladder that may be secondary to recent instrumentation however an underlying infectious process cannot be entirely excluded. Indeterminate left adrenal and right renal cystic foci, cannot exclude underlying neoplastic processes recommend a MRI for further characterization. Possible uterine prolapse. Atherosclerosis. Mild circumferential wall thickening of the colon that may be secondary to its incompletely distended state and/or a sequela of prior colitis. Electronically Signed: Latricia Childs MD at 18:43 EST Tel , Service support , Chest X-Ray 03/13/17 16:30 IMPRESSION: Stable examination demonstrating no acute cardiopulmonary process. Electronically Signed: Latricia Childs MD at 17:08 EST Tel , Service support , Abdomen MRI 03/14/17 08:45 IMPRESSION: 1. Bilateral adrenal masses. Both are unchanged in size and appearance from the 2016 CT and thought to represent adenomas. 2. Bilateral renal cysts. There is a higher signal intensity cyst in the lower pole of the right kidney thought to be hemorrhagic. There is minimal rim calcification posteriorly in the largest left renal cyst. These could be further evaluated sonographically if there is concern for solid mass. 3. Hepatic cysts. Electronically Signed: Bayron Cheung DO at 14:53 EST Tel [phone], Service support , Operations: None Procedures: None Summary of Care Provided: Patient seen and examined on the day of discharge and appears to be stable to be discharged home. She denies any complaints today. Denied abdominal pain, nausea, vomiting, constipation or diarrhea. Her pain is well controlled. Her breathing is stable at her baseline and she has been on 2 L. Vital signs are stable. - Physical Exam General: Alert, Oriented x3, Cooperative, No apparent distress. HEENT: Atraumatic, PERRLA, EOMI. Neck: Supple, No JVD, Negative Carotid Bruits, Trachea Midline, Thyroid Normal. Lungs: Diminished breath sounds bilateral, otherwise clear, No rhonchi, No wheeze, No rales. Cardiovascular: Regular rate, Regular Rhythm, Normal S1, Normal S2, PMI Normal. Abdomen: Bowel Sounds Present, Soft, Non Tender, Non-Distended, No Hepato- splenomegaly. Extremities: No clubbing, No cyanosis, No edema Skin: No rashes, No breakdown Neurological: Neuro grossly intact Vital Signs are stable. Hospital course: This is a 76 years old female patient with a because of lethargy, abdominal cramps and diarrhea and she was found to have acute diverticulitis, acute cystitis and sepsis as well as left adrenal nodule/right renal cystic foci. #1 acute descending and sigmoid diverticulitis/sepsis: Treated with IV Zosyn IV fluids, IV pain medications and IV antiemetics. She did have a significant leukocytosis she did have significant leukocytosis but that was chronic and her white blood cell count did drop with IV antibiotic therapy. Stool for C. difficile was negative. Blood culture showed no growth in 48 hours. Patient discharged home in a stable medical condition, discharged on Levaquin to complete 10 days of treatment. #2 Klebsiella pneumoniae acute cystitis: Treated with IV Zosyn as above. Urine culture revealed Klebsiella pneumoniae that was sensitive to Levaquin. Patient discharged home in a stable medical condition, discharged on Levaquin as above. #3 left adrenal nodule/right renal cystic foci: This is an incidental finding on CT scan abdomen. MRI abdomen done and revealed bilateral adrenal masses, likely adenomas and are unchanged in size and appearance from 2016 CT scan. Recommend follow-up with PCP as outpatient. #4 hypokalemia: Replaced and corrected per protocol, discharged on potassium supplement, order given to repeat BMP in 1 week.. #5 recent history of C2 cervical spine fracture: Due to mechanical fall. Continue neck collar, she was seen at [facility] for this fracture, no surgical treatment. #6 metabolic encephalopathy: Secondary to sepsis and infection. Resolved. Patient discharged home in stable medical condition, discharged on Levaquin for 7 days more to complete total of 10 days for acute diverticulitis with acute cystitis, discharged on potassium supplement, order given to repeat BMP in 1 week, recommended follow-up with PCP in 1 week. This note was generated with [employer] dictation software. It may contain incorrect words, spelling, and punctuation that were not noted in checking the note before signing. Discharge Activity: Return to Normal Activity Weight Bearing Status: Weight bearing as tolerated Call your doctor if you observe: Fever of 101 or Higher, Shortness of breath, Dizziness, Fainting spells, Chest pain, Increased palpitations (irregular heartbeat), Uncontrolled pain Home Medications: Medications to take at Discharge Albuterol Sulfate [Proair Respiclick] 2 puff IH PRN PRN 04/30/15 Budesonide/Formoterol 160/4.5 [Symbicort 160/4.5 Mcg Inhaler (SP)] 2 puff INHALATION BID 04/30/15 Cilostazol [Pletal] 100 mg PO DAILY 04/30/15 Losartan Potassium [Cozaar] 50 mg PO DAILY 04/30/15 Metoprolol Tartrate [Lopressor (beta jose)] 50 mg PO BID 04/30/15 Tiotropium Gleason [Spiriva 18 MCG] 1 puff INHALATION DAILY 04/30/15 Meclizine HCl [Antivert] 12.5 mg PO TID PRN PRN 08/12/15 Saccharomyces Boulardii [Digestive Probiotic] 200 mg PO DAILY 08/12/15 Simvastatin [Zocor] 20 mg PO QHS 08/12/15 Ondansetron [Zofran Odt] 4 mg PO Q8H PRN PRN #10 tab 01/20/17 Diphenoxylate/Atrop [Lomotil] 1 tablet PO BID PRN PRN #6 tablet 03/01/17 Levofloxacin [Levaquin] 750 mg PO DAILY #7 tab 03/16/17 Potassium Chloride [K-Dur] 20 meq PO BID #14 tab 03/16/17 Following Prescrptions Were Given to Patient: Levofloxacin [Levaquin] 750 mg PO DAILY #7 tab Potassium Chloride [K-Dur] 20 meq PO BID #14 tab Primary Care Physician: Sherry Hutton MD [Primary Care Provider] - Please follow up with your Primary Care Physician in: 1 week. Please Follow Up With: Chica Vences, [employer] Patient Instructions: Discharge Instructions for Diverticulitis, Discharge Instructions for Hypokalemia Disposition: Home Minutes spent on discharge:: 32 Meaningful Use Info Meaningful Use Diagnoses (Choose all that apply): None applicable Code Visit Inpatient E&M: 12446 Disch Hosp
[2017-03-19 11:08] LABS: Pathologist Review Reviewed
== END 2017-03-16 13:23 | disposition home health service (06) | DRG 871 ==
LOC: ED 17:00 → PCU 19:32
PROVIDERS: Admitting Provider Internal Medicine; Emergency Provider Emergency Medicine; Family Provider Internal Medicine; PCP Internal Medicine; Visit Provider Hospitalist
DX: A41.9 Sepsis, unspecified organism (principal); G93.41 Metabolic encephalopathy; J96.11 Chronic respiratory failure with hypoxia; E27.8 Other specified disorders of adrenal gland; Z99.81 Dependence on supplemental oxygen; J44.9 Chronic obstructive pulmonary disease, unspecified; K57.32 Diverticulitis of large intestine without perforation or abscess without bleeding; N30.00 Acute cystitis without hematuria; R65.20 Severe sepsis without septic shock; S12.100D Unspecified displaced fracture of second cervical vertebra, subsequent encounter for fracture with routine healing; W19.XXXD Unspecified fall, subsequent encounter; E87.6 Hypokalemia; I10 Essential (primary) hypertension; B96.1 Klebsiella pneumoniae [K. pneumoniae] as the cause of diseases classified elsewhere; Z72.0 Tobacco use
CPT/HCPCS: 36415; 71045; 74176; 74181; 80048; 80053; 81001; 82962; 83605; 83690; 83735; 84484; 85025; 85027; 85610; 85730; 87040; 87077; 87086; 87088; 87186; 87493; 93005; 97116; 97162; 97166; 97530; 97802; 99285; 99406; J7030; J7040; Q9967; A4216

== ENCOUNTER 2017-07-06 11:04 | Emergency (ER) | payer MEDICARE, OTHER, SELFPAY ==
[2017-07-06 11:07] VITALS: BP 145/83; PULSE 90; RESP 18; TEMP 36.7; O2SAT 98; BMI 14.7
[2017-07-06 11:24] VITALS: BP 103/57; BP 99/71; PULSE 94; PULSE 95
--- NOTE | 2017-07-06 11:27 | ED.DCSUM_ITS ---
- ER Visit Summary Date of Service: 07/06/17 Chief Complaint: Weakness, weight loss, loss of appetite History of Present Illness: The patient is a 76 F with significant past medical problems who presents because of increasing weakness over the past several weeks to months with decreased appetite and weight loss. She reports intermittent nausea, vomiting and diarrhea. She denies any fever or chills. She denies night sweats, back pain or bone pain. She has no known history of cancer. She denies any ocular, visual or auditory symptoms. She denies trouble with speech or swallowing. She presently denies any abdominal pain. She denies any dysuria, frequency, urgency or hematuria. She denies headache, paresthesia, anesthesia or motor weakness. She states she does not have the energy to rise from a sitting position and her son had to help her off the commode this morning. She had difficulty getting off the commode yesterday. Physical Examination: Vital signs are remarkable for an elevated blood pressure 145/83. Patient has a depressed affect. She has temporal wasting. Pupils equal round reactive. Extra muscle intact. Nares patent. TMs normal. Mucosa is dry. Trachea is midline. There is no cervical or supraclavicular lymphadenopathy. There is no inguinal lymphadenopathy. Heart is regular without murmur, gallop or rub. Lungs revealed diminished breath sounds with no wheezing, rales or rhonchi. Abdomen is soft nontender with no palpable pulsatile mass. There is no abdominal bruit. Lower extremity exam is unremarkable with no evidence of swelling, discoloration or edema. She is alert and oriented with a nonfocal neurologic exam. Test Results: H&H is 9.8 and 30.4. Potassium 2.5. BUN and creatinine are elevated and ratio is greater than 30-1. Emergency Department Course and Treatment: As I entered the room she was informing the nurse, Pavan, that she wishes no CPR intubation. Had a discussion regarding CODE STATUS and patient was made DNR Comfort Care. In light of this workup was limited to CBC, BMP and fluids. Treatment Plan: Since patient is not able to care for self and risk for fall case management was consulted to help with home health care. In my professional opinion patient is not able to perform activities of daily living without assistance. Disposition: Discharged to home with family who will supervise. And home health consult for home care. Impression: 1. Generalized weakness 2. Hypokalemia 3. Dehydration 4. DNR Comfort Care only This note was generated with [employer] dictation software. It may contain incorrect words, spelling, and punctuation that were not noted in review of the chart prior to signing ED Disposition - Plan for ED Patient: Disposition: Home or Assisted Living Chief Complaint: Weakness Prescriptions: Potassium Chl Soln 20 meq PO BID #480 [facility] [place] Referrals: Sherry Hutton MD [Primary Care Provider] -
[2017-07-06 11:34] LABS: Absolute Lymphocyte Count 1.07 X10^3/ul (0.83-4.51); Absolute Neutrophil Count 12.7 X10^3/uL (2.0-7.7); Basophil# 0.01 X10^3/uL; Basophil% 0.1 % (0-1); Hematocrit 30.4 % (37-47); Hemoglobin 9.8 g/dl (12.0-15.0); Lymphocyte # 1.07 X10^3/ul (4.0); Lymphocyte % 7.3 % (19-41); Mean Corp Hgb Conc 32.2 g/gl (32-36); Mean Corpuscular Hgb 26.8 pg (27.0-32.0); Mean Corpuscular Volume 83.3 fL (81-99); Monocyte% 6.8 % (0-10); Neutrophil # 12.65 X10^3/uL (2.7-7.7); Neutrophil % 85.7 % (47-70); Platelet Count 279 K/mm3 (150-450); RBC Distribution Width CV 19.3 % (11.6-14.6); RBC Distribution Width SD 57.7 fl (35.1-43.9); Red Blood Count 3.65 M/mm3 (4.2-5.4); White Blood Count 14.8 K/mm3 (4.4-11.0)
[2017-07-06 11:39] LABS: POSITIVE COUNT NO; POSITIVE DIFFERENTIAL NO; POSITIVE MORPHOLOGY NO
--- NOTE | 2017-07-06 11:47 | ED.RN ---
DR GENTILE NOTIFIED OF K+ RESULTS
[2017-07-06 11:49] LABS: ALB/GLOB Ratio 0.5 RATIO (0.9-2.4); AST(SGOT) 12 U/L (15-37); Alanine Aminotransfer ALT/SGPT 9 U/L (13-56); Albumin, Serum 1.8 g/dL (3.2-5.0); Alkaline Phosphatase 173 U/L (45-117); Anion Gap 11 (5-15); BUN 10 mg/dL (7-18); BUN/Creat Ratio 11.2 RATIO (10-20); Calcium,Total 7.9 mg/dL (8.5-10.1); Chloride 102 mmol/L (98-107); EST Glomerular Filtration Rate 65 mL/min (>60); Est Glom Filt Rate - Afr Amer 78 mL/min (>60); Estimated Creatinine Clearance 33.14 ml/min; Globulin 3.4 g/dL (2.2-4.2); Glucose 90 mg/dL (74-106); Potassium 2.5 mmol/L (3.5-5.1); Protein, Total 5.2 g/dL (6.4-8.2); Sodium Level 141 mmol/L (136-145)
--- NOTE | 2017-07-06 11:50 | EKG12_ITS ---
Test Reason : WEAKNESS Blood Pressure : / mmHG Vent. Rate : 084 BPM Atrial Rate : 084 BPM P-R Int : 104 ms QRS Dur : 086 ms QT Int : 418 ms P-R-T Axes : 028 042 112 degrees QTc Int : 493 ms Sinus rhythm with short GA ST & T wave abnormality, possible ischemia Abnormal ECG Confirmed by ANISH HENAO ([id number]), production editor JAMIE ESTRADA ([id number]) on 07/16/2017 6:18:08 PM Referred By: JOSHUA Confirmed By:ANISH HENAO
--- NOTE | 2017-07-06 12:33 | CM.ED ---
KIMBERLYN INITIAL ASSESSMENT: Home: Patient lives in a two story home with her sons. She has first floor setup. Patient states three steps into the home, but that she hasn't left the home in months. I've been too weak. HHS/Aides: Patient has had [facility] in the past, provided by [facility] in [place]. Patient denies having PT/OT home health in the past. She is interested in having PT/OT home health at this time. DME: Patient states she uses a walker. Home Oxygen: Patient states she wears 2 L continuous oxygen, provided by [facility]. Pharmacy: [facility] Advance Directives: Patient denies and declines assistance at this time. PCP: Sherry Hutton Specialists: Fred. Call placed to Leslie at [facility]. Leslie states they will accept the patient for home health services. They will contact the patient at her home phone number. Earliest available start of care date is Sunday or Sunday. Patient and family updated and are in agreement with this plan. Palliative care referral. Discussed with patient and family and they are interested in this service. DC Plan: Home with family support, home health care, and palliative care referral.
[2017-07-06 13:11] VITALS: BP 137/70; PULSE 84; RESP 13; O2SAT 100
--- NOTE | 2017-07-06 13:47 | CM.ED ---
Clinical information faxed to Hospice for palliative care referral. Corazon BRICE states she will call the patient/family later today or tomorrow to schedule first visit for early next week.
--- NOTE | 2017-07-06 13:58 | ED.VISSUMM ---
- ER Visit Summary Date of Service: 07/06/17 Chief Complaint: [] History of Present Illness: The patient is a 76 F [] Physical Examination: [] Test Results: [] Emergency Department Course and Treatment: [] Treatment Plan: [] Disposition: [] Impression: [] This note was generated with [employer] dictation software. It may contain incorrect words, spelling, and punctuation that were not noted in review of the chart prior to signing ED Disposition - Plan for ED Patient: Chief Complaint: Weakness Prescriptions: Potassium Chl Soln 20 meq PO BID #480 [facility] [place]errals: Sherry Hutton MD [Primary Care Provider] -
== END 2017-07-06 14:00 | disposition home or self-care (01) ==
LOC: ED 11:36
PROVIDERS: Emergency Provider Emergency Medicine; Family Provider Internal Medicine; PCP Internal Medicine
DX: R53.1 Weakness (principal); E87.6 Hypokalemia; E86.0 Dehydration; Z66 Do not resuscitate; E46 Unspecified protein-calorie malnutrition; J44.9 Chronic obstructive pulmonary disease, unspecified; I10 Essential (primary) hypertension; F32.9 Major depressive disorder, single episode, unspecified; I73.9 Peripheral vascular disease, unspecified; Z79.899 Other long term (current) drug therapy; Z72.0 Tobacco use
CPT/HCPCS: 80053; 85025; 93005; 99284; J7030; A4216

== ENCOUNTER 2017-07-11 17:10 | Emergency (ER) | payer MEDICARE, OTHER, SELFPAY ==
--- NOTE | 2017-07-11 17:10 | DT_ITS ---
This patient was seen during an EMR downtime July 09, 2017 - July 16, 2017. This patient may have a combination of paper and electronic documentation or all paper documentation. All documentation is viewable within the e-chart portion of [employer] for each patient visit.
--- NOTE | 2017-07-11 17:16 | EKG12_ITS ---
Test Reason : CP Blood Pressure : / mmHG Vent. Rate : 110 BPM Atrial Rate : 170 BPM P-R Int : 000 ms QRS Dur : 056 ms QT Int : 342 ms P-R-T Axes : 000 048 098 degrees QTc Int : 462 ms Atrial fibrillation with premature ventricular or aberrantly conducted complexes Abnormal ECG Confirmed by CACHORRO TRIVEDI, ROSALIE ([id number]), photography editor JAMIE ESTRADA ([id number]) on 07/18/2017 6:31:10 PM Referred By: Huber Sosa Confirmed By:ROSALIE IVORY MD
--- NOTE | 2017-07-11 18:28 | EKG12_ITS ---
Test Reason : CP Blood Pressure : / mmHG Vent. Rate : 099 BPM Atrial Rate : 099 BPM P-R Int : 094 ms QRS Dur : 072 ms QT Int : 344 ms P-R-T Axes : 038 046 110 degrees QTc Int : 441 ms Sinus rhythm with short [place] with Premature atrial complexes Nonspecific T wave abnormality Abnormal ECG Confirmed by CACHORRO TRIVEDI, ROSALIE ([id number]), newspaper or periodical editor JAMIE ESTRADA ([id number]) on 07/18/2017 6:30:52 PM Referred By: Huber Sosa Confirmed By:ROSALIE IVORY MD
--- NOTE | 2017-07-11 18:46 | RAD_ITS ---
STUDY: X-RAY CHEST REASON FOR EXAM: Female, 76 years old. Endotracheal and orogastric tube placement. TECHNIQUE: Single frontal view of the chest. COMPARISON: March 13, 2017 FINDINGS: Endotracheal tube has been placed with the tip in the right mainstem bronchus. NG tube tip is projected over the left upper quadrant of the abdomen, presumably in the fundus of the stomach. The lungs are hyperexpanded and there is a diffuse interstitial pattern unchanged. There is no demonstrated pleural abnormality. There is stable cardiomegaly. Normal mediastinum and dominick. Normal visualized pulmonary arteries. There is aortic tortuosity with calcification unchanged. Normal visualized thoracic spine. Normal visualized ribs, clavicles, and shoulders. There is no demonstrated abnormality of the visualized soft tissue structures of the upper abdomen. RAD/Chest 1 View (Portable) IMPRESSION: Stable cardiomegaly with hyperexpansion. Endotracheal tube tip in the right mainstem bronchus. NG tube tip in the left upper quadrant of the abdomen, presumably in the fundus of stomach. No acute abnormality. Electronically Signed: Bernabe Richmond MD at 12:10 EDT , Service support ,
--- NOTE | 2017-07-11 19:25 | CT_ITS ---
STUDY: CTA CHEST REASON FOR EXAM: Female, 76 years old. Shortness of breath and chest pain. Concern for esophageal perforation. RADIATION DOSAGE (If Supplied By Facility): CTDIvol = ( 3.50 ) mGy, DLP = ( 146.56 ) mGycm TECHNIQUE: The examination was performed with the intravenous administration of 100 ml of Isovue 370 contrast material. Post-processing of the angiographic images was performed, with multiplanar reformation and 3D reconstruction. Individualized dose optimization techniques were used for this CT. COMPARISON: None. FINDINGS: Cardiac monitoring leads are present. Normal enhancement of the main pulmonary artery and right and left pulmonary arteries. Normal enhancement of the bilateral peripheral pulmonary arteries. There is no demonstrated pulmonary embolism. There is prominence of the main pulmonary arteries without peripheral pulmonary vascular congestion. There is atherosclerotic calcification of the aortic arch with tortuosity. There is apparent perforation of the aortic arch at the junction of the descending thoracic aorta where there appears to be unenhanced blood. The rest of the descending thoracic aorta does not enhance, suggesting possible aortic thrombosis. There is dilatation of the thoracic aorta with maximum transverse dimension of approximately 4 cm. There is borderline cardiac cardiomegaly. There are calcifications of the coronary arteries. There appears to be a fluid within the mediastinum possibly representing blood. Normal hilar regions. The patient is intubated. The tip of endotracheal tube is in the right mainstem bronchus. The left lung has decreased volume with shift of mediastinum and heart towards the left. The right lung is hyperexpanded. There is left-sided airspace consolidation and/or atelectasis. There are patchy lucencies within the right lung, most severe at the right lung apex probably representing paraseptal and centrilobular emphysema. There may be early right apical blebs and/or bulla. No pleural effusions are visualized. Normal chest wall structures. The bones appear osteopenic. There is moderately severe compression fracture of T6 vertebral body. There may be bilateral renal cysts. CT/Chest W/WO Contrast IMPRESSION: 1. No CTA demonstrated pulmonary embolism. 2. Decreased enhancement of the descending thoracic aorta with loculated collection near the aortic arch suggesting perforation of a thoracic aortic aneurysm. Loculated blood is visible in the mediastinum. 3. Intubated right mainstem bronchus with severe left-sided pulmonary atelectasis. Suggest repositioning of endotracheal tube. 4. Osteoporosis with compression fracture. N.B. : The above information has been verbally conveyed by Mechelle Santos MD to Dr. Melara., Covering Physician, on 07/15/2017 03:37:12 (ET). Electronically Signed: Mechelle Santos MD at 3:38 EDT , Service support , N.B. : The above information has been verbally conveyed by Mechelle Santos MD to Dr. Melara., Covering Physician, on 07/15/2017 03:37:12 (ET).
--- NOTE | 2017-07-11 20:20 | CT_ITS ---
STUDY: CT ABDOMEN AND PELVIS WITHOUT CONTRAST REASON FOR EXAM: Female, 76 years old. Concern for free air with shortness of breath and chest pain. RADIATION DOSAGE (If Supplied By Facility): CTDIvol = ( 6.04 ) mGy, DLP = ( 305.22 ) mGycm TECHNIQUE: Transaxial images were obtained from the dome of the diaphragm to the symphysis pubis without oral contrast, and without intravenous contrast. Sagittal and coronal images were reconstructed. Individualized dose optimization techniques were used for this CT. COMPARISON: CT of the abdomen and pelvis dated March 13, 2017. FINDINGS: There is left basilar airspace consolidation and atelectasis. The visualized portions of the heart are within normal limits. Scattered lucencies are visible in the liver, possibly representing small cysts. These are unchanged since the previous study. There are multiple gallstones. Normal spleen. There is diffuse atrophy of the pancreas. There is a left adrenal nodule measuring approximately 2.4 cm. There is a right adrenal nodule measuring approximately 1.8 cm. There is bilateral perinephric fluid. There are multiple bilateral renal cysts. The largest cyst arises from the upper pole left kidney measuring approximately 4.2 cm. This has attenuation of approximately 40.8 Hounsfield units. The largest right-sided renal cyst measures approximately 2.2 cm. Enteric tube is visible in the stomach. There is distention of the stomach. There may be some blood within the stomach. There is no evidence for dilated bowel, ascites or pneumoperitoneum. There is very little solid stool within the colon. The distal descending colon and transverse colon is not distended. There is non-visualization of the appendix. There is dilatation of the suprarenal abdominal aorta with maximum transverse dimension of approximately 4.3 cm. There is extensive atherosclerotic calcification of the abdominal aorta. There may be an endovascular stent within the abdominal aorta and common iliac arteries. Normal inferior vena cava. Normal retroperitoneum. Patient has a Singh catheter within the urinary bladder. The urinary bladder wall is thickened measuring approximately 6 mm. There is atrophy of the uterus. Normal abdominal wall. The bones are osteopenic. There is mild curvature of the lumbar spine with convexity towards the left. There is multilevel degenerative disc disease with disc space narrowing at L4-5 and L5-S1. CT/Abdomen/Pelvis without Cont IMPRESSION: 1. Suprarenal abdominal aortic aneurysm. 2. Left basilar airspace consolidation and atelectasis. 3. Limited enhancement of the abdominal aorta possibly related to aortic occlusion/thrombosis. 4. Questionable hemorrhage within the stomach. 5. Bilateral renal cystic lesions. 6. Osteoporosis. NOTE: Critical result was already called for CTA of the chest done on this patient on July 15, 2017 Electronically Signed: Mechelle Santos MD at 3:52 EDT , Service support ,
[2017-07-14 08:06] LABS: Glucose 110 mg/dL (74-106)
[2017-07-14 08:07] LABS: AST(SGOT) 14 U/L (15-37); Alanine Aminotransfer ALT/SGPT 15 U/L (13-56); Alkaline Phosphatase 188 U/L (45-117); Anion Gap 10 (5-15); BUN 10 mg/dL (7-18); BUN/Creat Ratio 12.8 RATIO (10-20); Calcium,Total 8.2 mg/dL (8.5-10.1); Chloride 106 mmol/L (98-107); Creatinine, Serum 0.78 mg/dL (0.55-1.02); EST Glomerular Filtration Rate 76 mL/min (>60); Est Glom Filt Rate - Afr Amer 92 mL/min (>60); Globulin 3.5 g/dL (2.2-4.2); Lipase 40 U/L (73-393); Potassium 4.4 mmol/L (3.5-5.1); Protein, Total 5.5 g/dL (6.4-8.2); Sodium Level 141 mmol/L (136-145)
[2017-07-16 10:51] LABS: Allen Test POS; Base Excess -26 mmol/L (-2 to +2); Bicarbonate 3.2 mmol/L (22-26); Blood Gas Specimen Type ART; FI02 100; Mode A-C; O2 Delivery Device Vent; PEEP 5; PO2 77 mmHG (75-100); RR 14; SITE R Brachial; SO2 91 % (95-99); Total Carbon Dioxide < 5 mmol/L; Vt 400
[2017-07-19 08:33] LABS: pCO2 9.9 mmHg (35-45)
[2017-07-19 08:34] LABS: pH 7.12 (7.35-7.45)
== END 2017-07-11 20:40 | disposition short-term general hospital (02) ==
LOC: ED 07-13 11:54
PROVIDERS: Emergency Provider Emergency Medicine; Family Provider Internal Medicine; PCP Internal Medicine
DX: I71.01 Dissection of thoracic aorta (principal); K92.2 Gastrointestinal hemorrhage, unspecified; J96.90 Respiratory failure, unspecified, unspecified whether with hypoxia or hypercapnia; J44.9 Chronic obstructive pulmonary disease, unspecified; E11.9 Type 2 diabetes mellitus without complications; I10 Essential (primary) hypertension; E78.00 Pure hypercholesterolemia, unspecified; F17.210 Nicotine dependence, cigarettes, uncomplicated; Z99.81 Dependence on supplemental oxygen; Z79.899 Other long term (current) drug therapy
CPT/HCPCS: 31500; 36430; 36600; 51702; 71045; 71270; 74176; 80048; 80076; 82803; 83690; 84484; 85025; 86850; 86900; 93005; 94002; 94640; 99251; 99291; J7030; J7050; P9016; Q9967; A4216; G0463

== ENCOUNTER → 2017-07-11 18:03 | Outpatient (CLI) | payer MEDICARE, OTHER, SELFPAY ==
--- NOTE | 2017-07-11 18:03 | DT_ITS ---
This patient was seen during an EMR downtime July 09, 2017 - July 16, 2017. This patient may have a combination of paper and electronic documentation or all paper documentation. All documentation is viewable within the e-chart portion of [employer] for each patient visit.
[2017-07-14 06:24] LABS: Hemoglobin 10.4 g/dl (12.0-15.0); Mean Corp Hgb Conc 31.5 g/gl (32-36); Mean Corpuscular Hgb 26.8 pg (27.0-32.0); Mean Corpuscular Volume 85.1 fL (81-99); Mean Platelet Vol. 9.8 fl (6.2-12.0); POSITIVE COUNT NO; POSITIVE DIFFERENTIAL NO; POSITIVE MORPHOLOGY YES; Platelet Count 257 K/mm3 (150-450); RBC Distribution Width CV 20.6 % (11.6-14.6); RBC Distribution Width SD 64.5 fl (35.1-43.9); Red Blood Count 3.88 M/mm3 (4.2-5.4); White Blood Count 15.4 K/mm3 (4.4-11.0)
[2017-07-14 06:25] LABS: Absolute Lymphocyte Count 1.11 X10^3/ul (0.83-4.51); Absolute Neutrophil Count 13.1 X10^3/uL (2.0-7.7); Differential Indicated SCAN CRITERIA MET; Lymphocyte # 1.11 X10^3/ul (4.0); Lymphocyte % 7.2 % (19-41); Monocyte# 1.16 X10^3/uL; Monocyte% 7.5 % (0-10); Neutrophil # 13.06 X10^3/uL (2.7-7.7); Neutrophil % 84.9 % (47-70)
[2017-07-14 06:26] LABS: Differential Comment SCANNED
[2017-07-14 06:27] LABS: Platelet Estimate ADEQUATE (ADEQ)
== END ==
PROVIDERS: Family Provider Internal Medicine; PCP Internal Medicine; Visit Provider Emergency Medicine
DX: R69 Illness, unspecified (principal)
CPT/HCPCS: 85025; 86850; 86900; P9016

== ENCOUNTER → 2017-07-13 08:52 | Outpatient (CLI) | payer MEDICARE, OTHER, SELFPAY ==
--- NOTE | 2017-07-13 08:52 | DT_ITS ---
This patient was seen during an EMR downtime July 09, 2017 - July 16, 2017. This patient may have a combination of paper and electronic documentation or all paper documentation. All documentation is viewable within the e-chart portion of [facility] for each patient visit.
== END ==
PROVIDERS: Family Provider Internal Medicine; PCP Internal Medicine; Visit Provider Emergency Medicine
DX: R69 Illness, unspecified (principal)